=== PATIENT | female | born 1995 | race Caucasian/White ===

== ENCOUNTER 2024-07-08 10:57 | Outpatient (CLI) | payer BC, SELFPAY ==
--- OUTSIDE RECORDS SUMMARY | 2024-07-08 11:00 | XMS_ITS | Encounter Summary ---
Author Organization [facility] Address [address] [place] [address] Care Team Providers Care [place] Name Role Phone Unavailable Primary Care Provider Unavailabl e Encounter Details Date Type Department Care Team (Late st Contact Info) Description 04/05/2024 Clinical Communication Department of Obstetrics and Gynecology in [place], [place] [address] [id number] Sydni Dean M.D. [address] [place] [id number] Social History Tobacco Use Types Packs/Day Years Used Date Smoking Tobacco: Never Smokeless Tobacco: Never Alcohol Use Standard Drinks/Week Comments Not Currently 0 (1 standard drink = 0.6 oz pur e alcohol) [facility] Utilities Answer Date Recorded In the past 12 months has [facility], gas, oil, or water [employer] threatened to shut off services in your home? No 04/05/2024 Humiliation, Afraid, Rape, and Kick questionnair e Answer Date Recorded Within the last year, have y ou been afraid of your partner or ex-partner? No 11/30/2022 Within the last year, have y ou been humiliated or emotionally abused in other ways by your partner or ex-partner? No Within the last year, have y ou been kicked, hit, slapped, or otherwise physically hurt by your partner or ex-partner? No 11/30/2022 Within the last year, have y ou been raped or forced to have any kind of sexual activity by your partner or ex-partner? No 11/30/2022 Social Connection and Isolat ion Panel [NHANES] Answer Date Recorded In a typical week, how many times do you talk on the phone with family, friends, or neighbors? Three times a week 11/30/2022 How often do you get togethe r with friends or relatives? Twice a week 11/30/2022 How often do you attend chur ch or rastafari services? 1 to 4 times per year 11/30/2022 Do you belong to any clubs o r organizations such as religious groups, unions, fraternal or athletic groups, or school groups? No 11/30/2022 How often do you attend meet ings of the clubs or organizations you belong to? More than 4 times per year 11/30/2022 Are you , , di vorced, , never , or living with a partner? 11/30/2022 AUDIT-C Answer Date Recorded Q1: How often do you have a drink containing alc ohol? Never 11/30/2022 Average Number of Drinks Not on file 023 Frequency of Binge Drinking Not on file 10/2022 Overall Financial Resource Strain (CARDIA) Answe r Date Recorded How hard is it for you to pa y for the very basics like food, housing, medical care, and heating? Not hard at all 11/30/2022 PHQ-2 Answer Date Recorded PHQ-2 Score 0 11/30/2022 [facility] - Occupational Stress Questionnaire Answer Date Recorded Do you feel stress - tense, restless, nervous, or anxious, or unable to sleep at night because your mind is troubled all the time - these days? Not at all 11/30/2022 Exercise Vital Sign Answer Date Recorde d On average, how many days pe r week do you engage in moderate to strenuous exercise (like a brisk walk)? 5 days 04/05/2024 On average, how many minutes do you engage in exercise at this level? 60 min 04/05/2024 Hunger Vital Sign Answer Date Recorded Within the past 12 months, y ou worried that your food would run out before you got the money to buy more. Never true 04/05/20 24 Within the past 12 months, t he food you bought just didn't last and you didn't have money to get more. Never true 04/05/2024 PRAPARE - Transportation Answer Date Re corded In the past 12 months, has l ack of transportation kept you from medical appointments or from getting medications? No 01/2024 In the past 12 months, has l ack of transportation kept you from meetings, work, or from getting things needed for daily living? No 04/05/2024 Nutrition Answer Date Recorded On average, how many serving s of fruits and vegetables do you eat per day (serving size is equal to 1 cup or approximately the size of a tennis ball)? 0-2 04/05/2024 Dental Answer Date Recorded Dental: Regular Dentist No 12/01/19 Employment Answer Date Recorded Employment status Employed and actively working without restrictions 04/05/2024 Housing Stability Answer Date Recorded What is your living situation today? I have a [facility] place to live 04/05/2024 Education Answer Date Recorded What is the highest level of school you have completed or the highest degree you have received? 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 - 04/05/2024 4:35 PM CDT Called patient back to gather more information. Patient has not gotten her period as she is so she is unsure on how far along she is. States last test she took was in November and it was negative. She has some nausea but no other symptoms. Scheduled RN BRENDAN visit. documented in this encounter Plan of Treatment Not on file documented as of this encounter Visit Diagnoses Not on filedocumented in this encounter
--- OUTSIDE RECORDS SUMMARY | 2024-07-08 11:00 | XMS_ITS | Encounter Summary ---
Author Organization [facility] Address [address] [place] [address] Care Team Providers [employer] Name Role Phone Unavailable Primary Care Provider Unavailabl e Reason for Referral * Outpatient (Routine) - Closed Specialty Diagnoses / Procedures Referred By Thomas marquez Referred To Contact Obstetrics and Gynecology Diagnoses Examination Test With Positive Result (HCC) Hailey Monroe CNM, D.N.P. [address] [place] [address] Phone: tel: fax: [facility] Region Referral ID Status Reason Start Date Expiration Date Visits Re quested Visits Authorized [id number] Closed 04/07/2024 10/07/2025 1 1 Reason for Visit * Reason Comments Nurse Visit NOB RN Visit * Appointment Request (Routine) - Closed Specialty Diagnoses / Procedures Referred By Contac t Referred To Contact Obstetrics and Gynecology Referral ID Status Reason Start Date Expiration Date Visits Re quested Visits Authorized [id number] Closed 04/05/2024 04/05/2025 1 1 Encounter Details Date Type Department Care Team (Latest Contact Info) Description 04/07/2024 1:00 PM CDT Initial Department of Obstetrics and Gynecology in [place], [place] [address] [place] [phone] David Lock M.D. [address] [place] [phone] Thomasyolande ReneeRandolph PritchettNMarlon GA: 7w1d Discharge Disposition: Home or Self Care Social History Tobacco Use Types Packs/Day Years Used Date Smoking Tobacco: Never Smokeless Tobacco: Never Alcohol Use Standard Drinks/Week Comments Not Currently 0 (1 standard drink = 0.6 oz pur e alcohol) [facility] Utilities Answer Date Recorded In the past 12 months has e [employer], [employer], oil, or water [employer] threatened to shut off services in your [...] week 11/30/2022 How often do you attend [facility] or latter-day services? 1 to 4 times per year 11/30/2022 Do you belong to any clubs o r organizations such as hindu groups, unions, fraternal or athletic groups, or [...] PHQ-2 Answer Date Recorded PHQ-2 Score 0 04/07/2024 [facility] - Occupational Stress Questionnaire Answer Date Recorded [...] things needed for daily living? No 04/05/2024 Depression Answer Date Recor ded PHQ-9 Total Score (max 27) 1 04/07 Nutrition Answer Date Recorded On average, how many serving s of fruits and vegetables do you eat per day (serving size is equal to 1 cup or approximately the size of a tennis ball)? 0-2 04/05/2024 Dental Answer Date Recorded Dental: Regular Dentist No 12/01/19 23 Employment Answer Date Recorded Employment status Employed and actively working without restrictions 04/05/2024 Housing Stability Answer Date Recorded What is your living situation today? I have a the rehabilitation institutedy place to live 04/05/2024 Education Answer Date Recorded What is the highest level of school you have completed or the highest degree you have received? 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 - 04/07/2024 1:00 PM CDT SUBJECTIVE CHIEF COMPLAINT / REASON FOR VISIT Valentina Landa is a 28 y.o. . No LMP recorded (lmp unknown). Patient is . Her Estimated Date of Delivery: None noted. determined by US . Gestational age is Unknown. Relationship with FOB: spouse, living together. Patient plans to breastfeed. HISTORY OF PRESENT CONDITION OB History Para Term AB Living 2 1 1 1 SAB IAB Ectopic Molar Multiple Live Births 1 # Outcome Date GA Lbr Peterson/2nd Weight Sex Type Anes PTL Lv 2 Current 1 Term 07/01/23 37w5d 16:12 / 00:18 3 kg F Vag-Spont CAMILO Genetic Screen: reviewed [place] Score: Past Medical History: Diagnosis Date Anemia Varicella Past Surgical History: Procedure Laterality Date EXTRACTION TOOTH Family History Problem Relation Name Age of Onset No Known Problems Mother No Known Problems Father Rheumatic fever Brother Hypertension Maternal Grandfather Esophageal cancer Paternal Grandmother Cancer Paternal Grandmother Cirrhosis and chronic liver disease Paternal Grandmother Social History Socioeconomic History Marital status: Spouse name: Gerardo Number of children: 1 Highest education level: Doctorate Occupational History Occupation: Chiropractor Comment: Specializes in chiropractic Tobacco Use Smoking status: Never Smokeless tobacco: Never Vaping Use Vaping status: never used Substance and Sexual Activity Alcohol use: Not Currently Drug use: Never Sexual activity: Yes Partners: Male Social History Narrative Living with spouse and 1 child. No pets. Community Resource reviewed Social Determinants of Health Food Insecurity: No Food Insecurity (04/05/2024) Hunger Vital Sign Worried About Running Out of Food in the Last Year: Never true Ran Out of Food in the Last Year: Never true Transportation Needs: No Transportation Needs (04/05/2024) PRAPARE - Transportation Lack of Transportation (Medical): No Lack of Transportation (Non-Medical): No Physical Activity: Sufficiently Active (04/05/2024) Exercise Vital Sign Days of Exercise per Week: 5 days Minutes of Exercise per Session: 60 min Intimate Partner Violence: Not At Risk (11/30/2022) Humiliation, Afraid, Rape, and Kick questionnaire Fear of Current or Ex-Partner: No Emotionally Abused: No Physically Abused: No Sexually Abused: No Housing Stability: Low Risk (04/05/2024) Housing Stability Housing: Living Situation: I have a steady place to live No Known Allergies Medications the Patient Reported Taking B complex-vitamins (Balanced B-50) tablet (Taking) OBJECTIVE VITAL SIGNS ASSESSMENT / PLAN The following were reviewed with patient: 1st/2ndTrimester education provided today using the ACOG list of recommended antepartum education topics and in accordance with [facility] guidelines. Patient states understanding to all topics presented. All questions answered during appointment. Written information regarding topics presented provided for patient to take home. Please see education tab for further details about topics addressed. Anticipated course of care, Routine labs, optional labs, seat belt use, dental care, exercise, caffeine use, sexual activity, toxoplasmosis precautions(if indicated), avoidance of hot tubs/saunas, WIC, [place] policy, safe over the counter medications, care cost estimate/insurance, common symptoms, mercury and listeria precautions, and , topics of when to notify care team(fever, excessive nausea/vomiting, pain, bleeding, urinary symptoms, headaches). Encouraged good communication with care team re: emotional status. Lead screening complete and is negative. Encouraged tocall with questions or concerns. Renee Wadsworth R.N. documented in this encounter Plan of Treatment Scheduled Referrals Name Type Priority Associated Diagnoses Orde r Schedule Obstetrics and Gynecology - Obstetrics consult (clinic) Outpatient Referral Routine Examination Test With Positive Result (HCC) Expected: 04/07/2024, Expires: 07/08/2025 documented as of this encounter Results * Varicella-Zoster Antibody, IgG, Serum (04/22/2024 2:44 PM CDT) Varicella-Zoster Ab, IgG, S Positive 04/26/2024 1:58 PM CDT [facility] Comment: Results suggest response to immunization or prior exposure to the virus. ----REFERENCE VALUE---- Vaccinated: Positive (>=1.1 AI) Unvaccinated: Negative (<=0.8 AI) Varicella IgG Antibody Index 1.1 04/26/2024 1:58 PM CDT [place] Blood (Blood, Venous) 04/22/2024 2:44 PM CDT 04/23/2024 6:51 PM CDT Hailey Monroe CNM, D.N.P. LAB MICROBIOLOGY - BL OOD ORDERABLES Final Result Performing Organization Address [facility] de Phone Number [facility] [address] [place] [address], [facility] [place] [address] * Syphilis Total Antibody with Reflex, Serum (04/22/2024 2:44 PM CDT) Pathologist [facility] Syphilis Total Ab w/ Reflex Nonreactive Nonreactive 04/25/2024 9:17 AM CDT [facility] Comment: No serologic evidence of infection with T. pallidum (syphilis). ??Repeat testing may be considered in patients with suspected acute or primary syphilis in 2-4 weeks. For additional information on interpretation of the syphilis reverse algorithm and results, see: [email or web address] Blood (Blood, Venous) 04/22/2024 2:44 PM CDT 04/23/2024 6:53 PM CDT Hailey Monroe CNM, D.N.P. LAB BLOOD ADD-ON Hannah l Result Performing Organization Address City/[facility] Co de Phone Number [facility] [address] [place] [phone], [facility] in [address] [address] * Rubella Antibodies, IgG (04/22/2024 2:44 PM CDT) Rubella Ab, IgG, S Negative 04/26/2024 1:58 PM CDT [facility] Comment: ----REFERENCE VALUE---- Vaccinated: Positive (>=1.0 AI) Unvaccinated: Negative (<=0.7 AI) Rubella IgG Antibody Index <0.2 04/26/2024 1:58 PM CDT [facility] Blood (Blood, Venous) 04/22/2024 2:44 PM CDT 04/23/2024 6:51 PM CDT Hailey Monroe CNM, D.N.P. LAB MICROBIOLOGY - BL OOD ORDERABLES Final Result [facility] [address] [place] [address], [facility] in [address] [address] * HIV-1/-2 Ag and Ab Scrn, Plasma (04/22/2024 2:44 PM CDT) HIV Ag/Ab Scrn, P Negative Negative 04/25/2024 10:29 AM CDT [facility] Comment: Negative result does not rule out HIV infection. If exposure to HIV infection occurred <14 days ago, contact the laboratory to request addition of HIV-1/HIV-2 RNA detection , Plasma (HPP12). HIV-1 p24 Ag Scrn, P Negative Negative 04/25/2024 10:29 AM CDT [facility] Comment: Negative result does not rule out HIV infection. If exposure to HIV infection occurred <14 days ago, contact the laboratory to request addition of HIV-1/HIV-2 RNA detection , Plasma (HPP12). HIV-1 Ab Scrn, P Negative Negative 04/25/2024 10:29 AM CDT [facility] Comment: Negative result does not rule out HIV infection. If exposure to HIV infection occurred <14 days ago, contact the laboratory to request addition of HIV-1/HIV-2 RNA detection , Plasma (HPP12). HIV-2 Ab Scrn, P Negative Negative 04/25/2024 10:29 AM CDT [facility] Comment: Negative result does not rule out HIV infection. If exposure to HIV infection occurred <14 days ago, contact the laboratory to request addition of HIV-1/HIV-2 RNA detection , Plasma (HPP12). Blood (Blood, Venous) 04/22/2024 2:44 PM CDT 04/23/2024 6:53 PM CDT Hailey Monroe CNM, D.N.P. LAB MICROBIOLOGY - BL OOD ORDERABLES Final Result Performing Organization Address City/[facility]/ZIP Co de Phone Number [address] [address], [facility] in [address] [address] * Hepatitis C Virus Antibody Screen (04/22/2024 2:44 PM CDT) HCV Ab Scrn , S Negative Negative 04/23/2024 8:39 AM CDT [facility] Comment: Consumption of high-dose biotin supplement within 12 hours of blood collection for this test can cause false-negative results. Blood (Blood, Venous) 04/22/2024 2:44 PM CDT 04/23/2024 7:16 AM CDT Hailey Monroe CNM, D.N.P. LAB MICROBIOLOGY - BL OOD ORDERABLES Final Result [facility] [address] [place] [address] [facility] [address] [place] [address] * HBs Antigen , Serum (04/22/2024 2:44 PM CDT) HBs Antigen , S Non reactive Non reactive 04/22/2024 9:57 PM CDT [facility] Blood (Blood, Venous) 04/22/2024 2:44 PM CDT 04/22/2024 9:[address] CNMNMarlonP. LAB MICROBIOLOGY - BL OOD ORDERABLES Final Result [facility] [address] [place] [address], [facility] [address] [place] [address] * Hemoglobin Electrophoresis Evaluation (04/22/2024 2:44 PM CDT) Hb A 97.3 95.8 - 98.0 % 04/25/2024 2:48 PM CDT [facility]TL Hb F 0.0 0.0 - 0.9 % 04/25/2024 2:48 PM CDT DTL Hb A2 2.7 2.0 - 3.3 % 04/25/2024 2:48 PM CDT [facility] Comment: ----ADDITIONAL INFORMATION---- This test has been modified from the reflexologist's instructions. Its performance characteristics were determined by [facility] in a manner consistent with CLIA requirements. This test has not been cleared or approved by the U.S. Food and Drug Administration. HPLC Hb Variant, B See Interpretation 04/25/2024 2:48 PM CDT [facility] Comment: ----ADDITIONAL INFORMATION---- This test has been modified from the reflexologist's instructions. Its performance characteristics were determined by [facility] in a manner consistent with CLIA requirements. This test has not been cleared or approved by the U.S. Food and Drug Administration. Hb Electrophoresis Interpretation No electrophoretic evidence of abnormal hemoglobin or beta thalassemia. See comment. Comment: These results do not exclude alpha thalassemia. The vast majority of hemoglobin variants and beta complex thalassemias are excluded, including the common variants Hbs S, C, D, and E, although some rare clinically significant hemoglobin disorders are electrophoretically silent. In particular, some variants such as Hb Constant Spring, or other variants, may not be detected. If otherwise unexplained lifelong/familial symptoms such as hemolysis (i.e. Sha body hemolytic anemia), microcytosis, erythrocytosis, cyanosis, or hypoxia are present and additional testing is desired, please call the Metabolic Hematology Laboratory ( ). If alpha thalassemia is a consideration, alpha globin gene deletion/duplication analysis is available (ATHAL/Alpha-Globin Gene Analysis). If genotyping to assess for Hb Constant Spring is desired, please order WASEQ/Alpha Globin Gene Sequencing, B. Additional sample required. Methodologies utilized in this interpretation include: capillary electrophoresis, HPLC. 04/25/2024 2:48 PM CDT [facility] Blood (Blood, Venous) 04/22/2024 2:44 PM CDT 04/23/2024 8:29 AM CDT Hailey Monroe CNM, D.N.P. LAB BLOOD ADD-ON Hannah l Result [facility] [address] [place] [address], [facility] DTL [address] [facility] [address] [place] [address] * (ABNORMAL) CBC with Differential, Blood (04/22/2024 2:44 PM CDT) Hemoglobin 12.8 11.6 - 15.0 g/dL 04/22/2024 2:55 PM CDT [facility] Hematocrit 37.8 35.5 - 44.9 % 04/22/2024 2:55 PM CDT [facility] Erythrocytes 4.26 3.92 - 5.13 x10(12)/L 04/22/2024 2:55 PM CDT [facility] MCV 88.7 78.2 - 97.9 fL 04/22/2024 2:55 PM CDT [facility] RBC Distrib Width 12.5 12.2 - 16.1 % 04/22/2024 2:55 PM CDT [facility] Platelet Count 254 157 - 371 x10(9)/L 04/22/2024 2:55 PM CDT [facility] Leukocytes 12.6(H) 3.4 - 9.6 x10(9)/L 04/22/2024 2:55 PM CDT [facility] Neutrophils 8.86(H) 1.56 - 6.45 x10(9)/L 04/22/2024 2:55 PM CDT [facility] Lymphocytes 2.86 0.95 - 3.07 x10(9)/L 04/22/2024 2:55 PM CDT [facility] Monocytes 0.75 0.26 - 0.81 x10(9)/L 04/22/2024 2:55 PM CDT [facility] Eosinophils 0.11 0.03 - 0.48 x10(9)/L 04/22/2024 2:55 PM CDT [facility] Basophils 0.04 0.01 - 0.08 x10(9)/L 04/22/2024 2:55 PM CDT [facility] Blood (Blood, Venous) 04/22/2024 2:44 PM CDT 04/22/2024 2:46 PM CDT us Hailey Monroe CNM, D.N.P. LAB BLOOD ADD-ON Hannah l Result [facility] [address] [place] [id number], [place] [facility] in [place] [address] [address] * Antibody Screen, RBC (with reflex Antibody ID) (04/22/2024 2:44 PM CDT) Antibody Screen NEG 10:09 PM CDT [facility] Blood (Blood, Venous) 04/22/2024 2:44 PM CDT 04/22/2024 10:09 PM CDT us Hailey Monroe CNM, D.N.P. LAB BLOOD BANK TEST O RDERABLES Final Result [facility] [address] [place] [address], [place] [facility] [address] [place] [address] * Chlamydia / Gonorrhoeae Amplified RNA (04/22/2024 2:42 PM CDT) Source Swab, Vagina 04/22/2024 11:04 PM CDT [facility] Chlamydia trachomatis amplified RNA Negative Negative 04/22/2024 11:04 PM CDT [facility] Source Swab, Vagina 04/22/2024 11:04 PM CDT [facility] Neisseria gonorrhoeae amplified RNA Negative Negative 04/22/2024 11:04 PM CDT [facility] Swab (Vagina) 04/22/2024 2:4 2 PM CDT 04/22/2024 7:11 PM CDT us Hailey Monroe CNM, D.N.P. LAB MICROBIOLOGY - NERAL ORDERABLES Final Result [facility] [address] [place] [address], [facility] [address] [address] * (ABNORMAL) Urinalysis with Microscopic if Indicated (04/22/2024 2:40 PM CDT) Source Urine, Urine, Midstream 04/22/2024 3:11 PM CDT [facility] Clarity Cloudy(A) Clear 04/22/2024 3:11 PM CDT [facility] Color Yellow 04/22/2024 3:11 PM CDT [facility] Comment: ----REFERENCE VALUE---- Colorless Yellow Irene Blood Negative Negative 04/22/2024 3:11 PM CDT [facility] Nitrite Negative Negative 04/22/2024 3:11 PM CDT [facility] Leukocyte Esterase Small(A) Negative 04/22/2024 3:11 PM CDT [facility] Protein Negative mg/dL 04/22/2024 3:11 PM CDT [facility] Comment: ----REFERENCE VALUE---- Negative Trace Glucose Negative Negative mg/dL 04/22/2024 3:11 PM CDT [facility] Ketone Negative Negative mg/dL 04/22/2024 3:11 PM CDT [facility] Bilirubin Negative Negative 04/22/2024 3:11 PM CDT [facility] pH 6.0 5.0 - 8.0 04/22/2024 3:11 PM CDT [facility] Specific [place] 1.018 1.001 - 1.035 04/22/2024 3:11 PM CDT [facility] Urobilinogen 0.2 0.2 - 1.0 mg/dL 04/22/2024 3:11 PM CDT [facility] Urine (Urine, Midstream) 04/22/2024 2:40 PM CDT 04/22/2024 3:01 PM CDT Hailey Monroe CNM, D.N.P. LAB URINE ORDERABLES Final Result Performing Organization Address City/[facility] Co de Phone Number [facility] [address] [address], [facility] in [place] [address] [place] [phone] * Bacterial Culture, Aerobic + Susceptibility, Urine (04/22/2024 2:40 PM CDT) Urine Culture Urogenital microbiota, susceptibilities not performed per laboratory criteria. 04/23/2024 12:52 PM CDT [facility] Urine (Urine, Midstream) 04/22/2024 2:40 PM CDT 04/22/2024 7:12 PM CDT Comment:Specimen Source Site : Urine Hailey Monroe CNM, D.N.P. LAB MICROBIOLOGY - GE NERAL ORDERABLES Final Result Performing Organization Address City/[facility] Co de Phone Number [facility] [address] [place] [phone], [facility] in [address] [address] * US OB First Trimester (04/22/2024 1:27 PM CDT) Anatomical Region Laterality Modality Body, Ultrasound OB RST LOS, Ultrasound ARZ LOS N/A Ultrasound Impressions 04/22/2024 1:28 PM CDT Single living intra-uterine with dating per full report. Narrative 04/22/2024 1:28 PM CDT EXAM: US OB FIRST TRIMESTER COMPARISON: Correlation with prior ultrasound 01/16/2023. No more recent/relevant imaging available for comparison. TECHNIQUE: Transabdominal Only FINDINGS: Number of Gestations: Single Gestational age and JIMMY by LMP or OB/EHR assignment: , JIMMY: INTRAUTERINE Pole: Normal, [place]-Rump Length: 25.2 mm Gestational Sac: Normal Yolk Sac: Normal Placenta Location: Posterior. Age and JIMMY by current ultrasound measurements: 9 w 2 d, JIMMY: 11/23/2024. heart rate: 176 Uterus: No unexpected findings. Right Ovary/Adnexa: Normal. Left Ovary/Adnexa: Corpus luteum. Cervical Length: Subjectively normal by Transabd evaluation only Intraperitoneal Fluid: None. Procedure Note Jacob Coffman M.D. - 04/22/2024 EXAM: US OB FIRST TRIMESTER COMPARISON: Correlation with prior ultrasound 01/16/2023. No morerecent/relevant imaging available for comparison. TECHNIQUE: Transabdominal Only FINDINGS: Number of Gestations: Single Gestational age and JIMMY by LMP or OB/EHR assignment: , JIMMY: INTRAUTERINE Pole: Normal, [place]-Rump Length: 25.2 mm Gestational Sac: Normal Yolk Sac: Normal Placenta Location: Posterior. Age and JIMMY by current ultrasound measurements: 9 w 2 d, JIMMY: 11/23/2024. heart rate: 176 Uterus: No unexpected findings. Right Ovary/Adnexa: Normal. Left Ovary/Adnexa: Corpus luteum. Cervical Length: Subjectively normal by Transabd evaluation only Intraperitoneal Fluid: None. IMPRESSION: Single living intra-uterine with dating per full report. us Hailey Monroe CNM, D.N.P. IMG OB US PROCEDURES Final Result documented in this encounter Visit Diagnoses Diagnosis Examination Test With Positive Result (HCC)- Primary Examination Test With Positive Result (HCC) documented in this encounter Additional Health Concerns Assessment Noted Time PHQ-9 Depression Total Score: 1 04/07/20 24 1:08 PM CDT documented as of this encounter
--- OUTSIDE RECORDS SUMMARY | 2024-07-08 11:00 | XMS_ITS | Encounter Summary ---
Author Organization [facility] Address [address] [place] [address] Care Team Providers Care Sculpture Conservator Name Role Phone Unavailable Primary Care Provider Unavailabl e Encounter Details Date Type Department Care Team (Latest Contact Info) Description 04/22/2024 2:22 PM CDT - 04/22/2024 11:59 PM CDT Hospital Encounter Department of Laboratory Medicine in [place], [place] [address] [place] [address] Hailey Monroe CNM, D.N.P. [address] [place] [address] Examination Test With Positive Result (HCC) Discharge Disposition: Home or Self Care Social History Tobacco Use Types Packs/Day Years Used Date Smoking Tobacco: Never Smokeless Tobacco: Never Alcohol Use Standard Drinks/Week Comments Not Currently 0 (1 standard drink = 0.6 oz pur e alcohol) [facility] Utilities Answer Date Recorded In the past 12 months has e [employer], gas, oil, or water [employer] threatened to shut off services in your [...] often do you attend chur ch or sabianist services? 1 to 4 times per year 11/30/2022 Do you belong to any clubs o r organizations such as temple groups, unions, fraternal or athletic groups, or [...] Average Number of Drinks Not on file Frequency of Binge Drinking Not on file 10/2022 Overall Financial Resource Strain (CARDIA) Answe r Date Recorded How hard is it for you to pa y for the very basics like food, housing, medical care, and heating? Not hard at all 11/30/2022 PHQ-2 Answer Date Recorded PHQ-2 Score 0 04/07/2024 [facility] Occupat ional Health - Occupational Stress [...] your living situation today? [facility] 04/05/2024 Education Answer Date Recorded What is the highest level of school you have completed or the highest degree you have received? 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 documented as of this encounter Plan of Treatment Not on file documented as of this encounter Procedures Procedure Name Priority Date/Time Associated Diagnosis Comments HCV AB SCRN , S Routine 04/22/20 24 2:44 PM CDT Examination Test With Positive Result (HCC) HIV-1/-2 AG AND AB SCRN, PLASMA Routine 04/22/2024 2:44 PM CDT Examination Test With Positive Result (HCC) SYPHILIS TOTAL AB W/ REFLEX S Routine 04/22/2024 2:44 PM CDT Examination Test With Positive Result (HCC) HBS ANTIGEN , S Routine 04/22/20 2:44 PM CDT Examination Test With Positive Result (HCC) HEMOGLOBIN ELECTROPHORESIS CASCADE, B Routine 04/22/2024 2:44 PM CDT Examination Test With Positive Result (HCC) RUBELLA ANTIBODIES, IGG Routine 04/22/20 2:44 PM CDT Examination Test With Positive Result (HCC) CBC WITH DIFFERENTIAL, B Routine 04/22/2024 2:44 PM CDT Examination Test With Positive Result (HCC) ANTIBODY SCREEN, B Routine 04/22/2024 2: 44 PM CDT Examination Test With Positive Result (HCC) VARICELLA-ZOSTER AB, IGG, S Routine 04/22/2024 2:44 PM CDT Examination Test With Positive Result (HCC) documented in this encounter Results * Varicella-Zoster Antibody, IgG, Serum (04/22/2024 2:44 PM CDT) Varicella-Zoster Ab, IgG, S Positive 04/26/2024 1:58 PM CDT [facility] Comment: Results suggest response to immunization or prior exposure to the virus. ----REFERENCE VALUE---- Vaccinated: Positive (>=1.1 AI) Unvaccinated: Negative (<=0.8 AI) Varicella IgG Antibody Index 1.1 04/26/2024 1:58 PM CDT [facility] Blood (Blood, Venous) 04/22/2024 2:44 PM CDT 04/23/2024 6:51 PM CDT Hailey Monroe CNM, Nancy.N.P. LAB MICROBIOLOGY - BL OOD ORDERABLES Final Result Performing Organization Address [facility] Co de Phone Number [facility] [address] [place] [phone], [facility] in [address] [address] * Syphilis Total Antibody with Reflex, Serum (04/22/2024 2:44 PM CDT) Syphilis Total Ab w/ Reflex Nonreactive Nonreactive 04/25/2024 9:17 AM CDT [facility] Comment: No serologic evidence of infection with T. pallidum (syphilis). ??Repeat testing may be considered in patients with suspected acute or primary syphilis in 2-4 weeks. For additional information on interpretation of the syphilis reverse algorithm and results, see: [email or web address] Blood (Blood, Venous) 04/22/2024 2:44 PM CDT 04/23/2024 6:53 PM CDT Hailey Monroe CNM, D.N.P. LAB BLOOD ADD-ON Hannah l Result Performing Organization Address [facility] Co de Phone Number [facility] [address] [place] [phone], [facility] in [address] [address] * Rubella Antibodies, IgG (04/22/2024 2:44 PM CDT) Rubella Ab, IgG, S Negative 04/26/2024 1:58 PM CDT [facility] Comment: ----REFERENCE VALUE---- Vaccinated: Positive (>=1.0 AI) Unvaccinated: Negative (<=0.7 AI) Rubella IgG Antibody Index <0.2 04/26/2024 1:58 PM CDT [facility] Blood (Blood, Venous) 04/22/2024 2:44 PM CDT 04/23/2024 6:51 PM CDT us Hailey Monroe CNM, D.N.P. LAB MICROBIOLOGY - BL OOD ORDERABLES Final Result [facility] [address] [place] [address], [facility] in [place] [address] * HIV-1/-2 Ag and Ab Scrn, Plasma [...] 2:44 PM CDT 04/23/2024 6:53 PM CDT us Hailey Monroe CNM, D.N.P. LAB MICROBIOLOGY - BL OOD ORDERABLES Final Result [facility] [address] [place] [address], [place] [facility] [place] [address] [place] [address] * Hepatitis C Virus Antibody Screen (04/22/2024 2:44 PM CDT) Pathologist [facility] [place] HCV Ab Scrn , S Negative Negative 04/23/2024 8:39 AM CDT [facility] Comment: Consumption of high-dose biotin supplement within 12 hours of blood collection for this test can cause false-negative results. Blood (Blood, Venous) 04/22/2024 2:44 PM CDT 04/23/2024 7:16 AM CDT Hailey Monroe CNM, Nancy.N.P. LAB MICROBIOLOGY - BL OOD ORDERABLES Final Result Performing Organization Address City/[facility]/ZIP Co de Phone Number [facility] [address] [place] [address] [facility] [address] [place] [address] * HBs Antigen , Serum (04/22/2024 2:44 PM CDT) Pathologist [facility] [place] HBs Antigen , S Non reactive Non reactive 04/22/2024 9:57 PM CDT [facility] Blood (Blood, Venous) 04/22/2024 2:44 PM CDT 04/22/2024 9:21 PM CDT us Hailey Monroe CNM, D.N.P. LAB MICROBIOLOGY - BL OOD ORDERABLES Final Result [facility] [address] [place] [address], [place] [facility] [address] [place] [address] * Hemoglobin Electrophoresis Evaluation (04/22/2024 2:44 PM CDT) Pathologist [facility] [place] Hb A 97.3 95.8 - 98.0 % 04/25/2024 2:48 PM CDT [facility] Hb F 0.0 0.0 - 0.9 % 04/25/2024 2:48 PM CDT [facility] Hb A2 2.7 2.0 - 3.3 % 04/25/2024 2:48 PM CDT [facility] Comment: ----ADDITIONAL INFORMATION---- This test has been modified from the front desk's instructions. Its performance characteristics were determined by [facility] in a manner consistent with CLIA requirements. This test has not been cleared or approved by the U.S. Food and Drug Administration. HPLC Hb Variant, B See Interpretation 04/25/2024 2:48 PM CDT [facility] Comment: ----ADDITIONAL INFORMATION---- This test has been modified from the front desk's instructions. Its performance characteristics were determined by [facility] in a manner consistent with CLIA [...] D.N.P. LAB BLOOD ADD-ON Hannah l Result [facility] [address] [place] [address], [facility] DTL [address] [facility] [address] [place] [address] * (ABNORMAL) CBC with Differential, Blood (04/22/2024 [...] ADD-ON Hannah l Result Performing Organization Address City/[facility]/ZIP Co de Phone Number [facility] [address] [place] [address], [place] [facility] [place] [address] [place] [address] * Antibody Screen, RBC (with reflex Antibody ID) (04/22/2024 2:44 PM CDT) Antibody Screen NEG 10:09 PM CDT [facility] Blood (Blood, Venous) 04/22/2024 2:44 PM CDT 04/22/2024 10:09 PM CDT us Hailey Monroe CNM, D.N.P. LAB BLOOD BANK TEST O RDERABLES Final Result Performing Organization Address [facility] Co de Phone Number [facility] [address] [place] [address], [facility] [address] [place] [address] documented in this encounter Visit Diagnoses Diagnosis Examination Test With Positive Result (HCC) documented in this encounter Additional Health Concerns Assessment Noted Time PHQ-9 Depression Total Score: 1 04/07/20 24 1:08 PM CDT documented as of this encounter
--- OUTSIDE RECORDS SUMMARY | 2024-07-08 11:00 | XMS_ITS | Referral Summary ---
Author Organization [facility] Address [address] [place] [address] Care Team Providers Care Director Auto Name Role Phone Unavailable Primary Care Provider Unavailabl e Source Comments Patient records contain information from all sites at [facility]. For routine questions regarding patient records, call [phone] during business hours, M-F 8:00 AM - 5:00 PM Central Time. Record requests for emergency care only can be directed to [phone] at any time.[facility] Encounters Date Type Department Care Team Description 04/22/2024 2:22 PM CDT - 04/22/2024 11:59 PM CDT Hospital Encounter Department of Laboratory Medicine in [place], [place] [address] [place] [phone] Hailey Monroe CNM, D.N.P. Examination Test With Positive Result (HCC) Discharge Disposition: Home or Self Care 04/22/2024 2:22 PM CDT - 04/22/2024 11:59 PM CDT Hospital Encounter Department of Laboratory Medicine in [place], [place] [address] [place] [phone] Hailey Monroe CNM, D.N.P. Examination Test With Positive Result (HCC) Discharge Disposition: Home or Self Care 04/22/2024 1:30 PM CDT Silent Schedule Department of Obstetrics and Gynecology in [place], [place] [address] [place] [phone] Hailey Monroe CNM, D.N.P. Examination Test With Positive Result ([facility]) 04/22/2024 2:00 PM CDT Initial Department of Obstetrics and Gynecology in [place], [place] [address] [phone] Hailey Monroe CNM, Nancy.N.P. GA: 9w2d Discharge Disposition: Home or Self Care 04/07/2024 1:00 PM CDT Initial Department of Obstetrics and Gynecology in [place], [place] [address] [place] [phone] David Lock M.D. Dettmann, Heather B, R.N. GA: 7w1d Discharge Disposition: Home or Self Care from Last 3 Months Allergies Active Allergy Reactions Criticality Noted Date Comments Nickel Rash Low 07/01/2023 Medications * This document contains information received from the source organization and may not represent a complete record from that organization. B complex-vitamins (Balanced B-50) tablet Take 1 tablet by mouth daily. Active Active Problems Patient Care Coordination No te Formatting of this note migh t be different from the original. 11/13: Early Education Complete Problem Noted Date Diagnosed Date Encounter For Supervision Of Normal Unspecified Trimester 04/22/2024 Overview (04/27/2024): x 1 Datinwk US FOB: Gerardo () Blood type: O neg (antibodies neg) Carrier/aneuploidy screening: Considering Rubella non-immune/Varicella immune Covid Vaccine: In season Influenza vaccine: In season Pap Due: 12/2025 LDASA: N/A anatomy scan: OGTT: Hb at 28 weeks: Tdap: Rhogam: GBS: PPBC: Presentation at 36 wks: Feeding plan: Breast pump: Colostrum collection: Delivery Plan: Next visit: Issues: Term x 1: 3 kg female at 37w5d in 2022. 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 O negative blood type anatomy scan: .ordered 01/22/2023 OGTT: ___ Hb at 28 weeks:___ Tdap:___ Rhogam?: is reportedly negative; patient may decline GBS: ___ PPBC:___ Problems: 1. Hyperemesis. Improving at NOB at 14 weeks. 10 lb wt loss from prepreg 2. O neg blood type 3. Rubella NI 4. Cervical polyp- anterior lip, noted at NOB vi Hyperemesis Gravidarum Mild 01/22/2023 04/22/2024 Social History Tobacco Use Types Packs/Day Years Used Date Smoking Tobacco: Never Smokeless Tobacco: Never Tobacco Cessation:Counseling Given: Not Answered Alcohol Use Standard Drinks/Week Comments Not Currently 0 (1 standard drink = 0.6 oz pur e alcohol) [facility] Utilities Answer Date Recorded In the past [address] [facility] [employer], oil, or water [employer] threatened to shut off services in your [...] often do you attend chur ch or hindu services? 1 to 4 times per year 11/30/2022 Do you belong to any clubs o r organizations such as orthodoxy groups, unions, fraternal or athletic groups, or [...] Answer Date Recorded PHQ-2 Score 0 04/07/2024 [facility] - Occupational Stress [...] medical appointments or from getting medications? No 0801/2024 In the past 12 months, has l [...] your living situation today? I have a [facility] place to live 04/05/2024 Education Answer Date Recorded What is the highest level of school you have completed or the highest degree you have received? 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 on file Not on file Last Filed Vital Signs Vital Sign Reading Time Taken Comments Blood Pressure 104/69 04/22/2024 1:47 PM CDT Pulse 79 04/22/2024 1:47 PM CDT Temperature - - Respiratory Rate 20 02/23/2015 3:34 PM CDT Oxygen Saturation - - Inhaled Oxygen Concentration - - Weight 65.7 kg (144 lb 13.5 oz) 04/22/2024 1:47 PM CDT Height 166.2 cm (5' 5.43) 04/22/2024 1 :47 PM CDT with shoes on Body Mass Index 23.79 04/22/2024 1:47 PM CDT Plan of Treatment Not on file Procedures Procedure Name Priority Date/Time Associated Diagnosis Comments HEMOGLOBIN ELECTROPHORESIS CASCADE, B Routine 04/22/2024 2:44 [...] Positive Result (HCC) RUBELLA ANTIBODIES, IGG Routine 04/22/2024 2:44 PM CDT Examination Test With Positive Result (HCC) HIV-1/-2 AG AND AB SCRN, PLASMA Routine 04/22/2024 2:44 PM CDT Examination Test With Positive Result (HCC) HCV AB SCRN , S Routine 04/22/2024 2:44 PM CDT Examination Test With Positive Result (HCC) HBS ANTIGEN , S Routine 04/22/2024 2:44 PM CDT Examination Test With Positive Result (HCC) CHLAMYDIA/GONORRHOEAE AMPLIFIED RNA Routine 04/22/2024 2:42 PM CDT Examination Test With Positive Result (HCC) AL URINALYSIS AUTO WO MICRO Routine 04/22/2024 2:40 PM CDT URINALYSIS WITH MICROSCOPIC IF INDICATED, U Routine 04/22/2024 2:40 PM CDT Examination Test With Positive Result (HCC) BACTERIAL CULTURE, AEROBIC + SUSC, URINE Routine 04/22/2024 2:40 PM CDT Examination Test With Positive Result (HCC) US OB FIRST TRIMESTER RAD - Semiurgent (Fast; most ED patients; some inpatients) 04/22/2024 1:27 PM CDT Examination Test With Positive Result (HCC) THINPREP SCREEN HPV REFLEX Routine 01/22/2023 11:26 AM CDT Encounter For Screening For Malignant Neoplasm Of Cervix from Last 3 Months or Most Recently Relevant to Health Maintenance Results * Hepatitis C Virus Antibody Screen (04/22/2024 2:44 PM CDT) HCV Ab Scrn , S Negative Negative 04/23/2024 8:39 AM CDT [facility] Comment: Consumption of high-dose biotin supplement within 12 hours of blood collection for this test can cause false-negative results. Blood (Blood, Venous) 04/22/2024 2:44 PM CDT 04/23/2024 7:16 AM CDT Hailey Monroe CNM, Nancy.N.P. LAB MICROBIOLOGY - BL OOD ORDERABLES Final Result [facility] [address] [place] [address] [facility] [address] [place] [address] * HIV-1/-2 Ag and Ab Scrn, Plasma (04/22/2024 2:44 PM CDT) HIV Ag/Ab Scrn, P Negative Negative 04/25/2024 10:29 AM CDT [facility] Comment: Negative result does not rule out [...] MICROBIOLOGY - BL OOD ORDERABLES Final Result [facility] [address] [place] [address], [facility] in [place] [id number] * Syphilis Total Antibody with Reflex, Serum (04/22/2024 2:44 PM CDT) Syphilis Total Ab w/ Reflex Nonreactive Nonreactive 04/25/2024 9:17 AM CDT [facility] Comment: No serologic evidence of infection with T. pallidum (syphilis). ??Repeat testing may be considered in patients with suspected acute or primary syphilis in 2-4 weeks. For additional information on interpretation of the syphilis reverse algorithm and results, see: [email or web address] Blood (Blood, Venous) 04/22/2024 2:44 PM CDT 04/23/2024 6:53 PM CDT us Hailey Monroe CNM, D.N.P. LAB BLOOD ADD-ON Hannah l Result Performing Organization Address City/[facility]/ZIP Co de Phone Number [facility] [address] [place] [address], [facility] in [address] [address] * HBs Antigen , Serum (04/22/2024 2:44 PM CDT) HBs Antigen , S Non reactive Non reactive 04/22/2024 9:57 PM CDT [facility] Blood (Blood, Venous) 04/22/2024 2:44 PM CDT 04/22/2024 9:21 PM CDT us Hailey Monroe CNM, D.N.P. LAB MICROBIOLOGY - BL OOD ORDERABLES Final Result Performing Organization Address City/[facility] Co de Phone Number [facility] [address] [place] [address], [facility] [address] [place] [address] * Hemoglobin Electrophoresis Evaluation (04/22/2024 2:44 PM CDT) Hb A 97.3 95.8 - 98.0 % 04/25/2024 2:48 PM CDT DTL Hb F 0.0 0.0 - 0.9 % 04/25/2024 2:48 PM CDT DTL Hb A2 2.7 2.0 - 3.3 % 04/25/2024 2:48 PM CDT [facility] Comment: ----ADDITIONAL INFORMATION---- This test has been modified from the plant production worker's instructions. Its performance characteristics were determined by [facility] in a manner consistent with CLIA requirements. This test has not been cleared or approved by the U.S. Food and Drug Administration. HPLC Hb Variant, B See Interpretation 04/25/2024 2:48 PM CDT [facility] Comment: ----ADDITIONAL INFORMATION---- This test has been modified from the plant production worker's instructions. Its performance characteristics were determined by [facility] in a manner consistent with CLIA [...] D.N.P. LAB BLOOD ADD-ON Hannah l Result [facility] [address] [place] [address], [facility] DT [address] [place] [address] * Rubella Antibodies, IgG (04/22/2024 2:44 PM CDT) Pathologist [facility] Rubella Ab, IgG, S Negative 04/26/2024 1:58 PM CDT [facility] Comment: ----REFERENCE VALUE---- Vaccinated: Positive (>=1.0 AI) Unvaccinated: Negative (<=0.7 AI) Rubella IgG Antibody Index <0.2 04/26/2024 1:58 PM CDT [facility] Blood (Blood, Venous) 04/22/2024 2:44 PM CDT 04/23/2024 6:51 PM CDT Hailey Monroe CNM, Nancy.N.P. LAB MICROBIOLOGY - BL OOD ORDERABLES Final Result [facility] [address] [place] [address], [facility] in [address] [address] * (ABNORMAL) CBC with Differential, Blood (04/22/2024 [...] ADD-ON Hannah l Result Performing Organization Address City/[facility]/ZIP Co de Phone Number [facility] [address] [place] [address], [facility] in [place] [address], [place] [address] * Antibody Screen, RBC (with reflex Antibody ID) (04/22/2024 2:44 PM CDT) Antibody Screen NEG 10:09 PM CDT [facility] Blood (Blood, Venous) 04/22/2024 2:44 PM CDT 04/22/2024 10:09 PM CDT us Hailey Monroe CNM, D.N.P. LAB BLOOD BANK TEST O RDERABLES Final Result Performing Organization Address [facility] de Phone Number [facility] [address] [place] [address], [facility] - [facility] [address] [place] [address] * Varicella-Zoster Antibody, IgG, Serum (04/22/2024 2:44 [...] OOD ORDERABLES Final Result Performing Organization Address City/[facility] Co de Phone Number [facility] [address] [place] [address], [facility] in [place] [address] [place] [address] * Chlamydia / Gonorrhoeae Amplified RNA (04/22/2024 2:42 PM CDT) Source Swab, Vagina 04/22/2024 11:04 PM CDT [facility] Chlamydia trachomatis amplified RNA Negative Negative 04/22/2024 11:04 PM CDT [facility] Source Swab, Vagina 04/22/2024 11:04 PM CDT [facility] Neisseria gonorrhoeae amplified RNA Negative Negative 04/22/2024 11:04 PM CDT [facility] Swab (Vagina) 04/22/2024 2:4 2 PM CDT 04/22/2024 7:11 PM CDT Hailey Monroe CNM, Nancy.N.P. LAB MICROBIOLOGY - GE NERAL ORDERABLES Final Result Performing Organization Address City/[facility] Co de Phone Number [facility] [address] [place] [address], [facility] [address] [place] [address] * (ABNORMAL) Urinalysis with Microscopic if Indicated [...] 8.0 04/22/2024 3:11 PM CDT [facility] Specific [place] 1.018 1.001 - 1.035 04/22/2024 3:11 PM CDT [facility] Urobilinogen 0.2 0.2 - 1.0 mg/dL 04/22/2024 3:11 PM CDT [facility] Urine (Urine, Midstream) 04/22/2024 2:40 PM CDT 04/22/2024 3:01 PM CDT us Hailey Monroe CNM, D.N.P. LAB URINE ORDERABLES Final Result [facility] [address] [place] [address], [facility] in [place] [address] [place] [address] * (ABNORMAL) Microscopic Automated (04/22/2024 2:40 PM CDT) White Blood Cells 41-50(A) /hpf 04/22/2024 3:52 PM CDT [facility] Comment: ----REFERENCE VALUE---- Males: 0-3 Females: 0-10 Unknown: 0-10 Red Blood Cells Occ-2 0 - 2 /hpf 04/22/2024 3:52 PM CDT [facility] Hyaline Casts 1-3 /lpf 04/22/2024 3:52 PM CDT [facility] Squamous Cells 4-10 /hpf 04/22/2024 3:52 PM CDT [facility] Bacteria Present(A) None Seen 04/22/2024 3:52 PM CDT [facility] Urine 04/22/2024 2:40 PM CDT 04/22/2024 3:01 PM CDT Hailey Monroe CNM, Nancy.N.P. LAB URINE ORDERABLES Final Result Performing Organization Address City/[facility] Co de Phone Number [facility] [address] [place] [address], [facility] in [place] [address] [place] [address] * Bacterial Culture, Aerobic + Susceptibility, Urine (04/22/2024 2:40 PM CDT) Urine Culture Urogenital microbiota, susceptibilities not performed per laboratory criteria. 04/23/2024 12:52 PM CDT [facility] Urine (Urine, Midstream) 04/22/2024 2:40 PM CDT 04/22/2024 7:12 PM CDT Comment:Specimen Source Site : Urine Hailey Monroe CNM, D.N.P. LAB MICROBIOLOGY - GE NERAL ORDERABLES Final Result Performing Organization Address City/[facility] Co de Phone Number [facility] [address] [place] [address], [facility] in [place] [address] [place] [address] * US OB First Trimester (04/22/2024 1:27 [...] OB/EHR assignment: , JIMMY: INTRAUTERINE Pole: Normal, [place]-Rump Length: 25.2 mm Gestational Sac: Normal [place] [...] OB/EHR assignment: , JIMMY: INTRAUTERINE Pole: Normal, [place]-Rump Length: 25.2 mm Gestational Sac: Normal [place] [...] D.N.P. IMG OB US PROCEDURES Final Result * ThinPrep Screen HPV Reflex (01/22/2023 11:26 AM CDT) 02/03/2023 3:15 PM CDT [facility] Report electronically signed by ROYCE Cedeno (ASCP) I verify that I have examined all relevant slides/materials for the specimen(s) and rendered or confirmed the diagnosis. 02/03/2023 3:15 PM CDT [facility] Gross Description Received specimen in a ThinPrep vial. 02/03/2023 3:15 PM CDT [facility] Pap Test Source Cervical/Endocervi dipesh 02/03/2023 3:15 PM CDT [facility] Clinical History pap 02/04/20 3:15 PM CDT [facility] Menstrual Status(LMP, PM, ) 02/03/2023 3:15 PM CDT [facility] Hormone Therapy/Contracep tives None/Not known 02/03/2023 3:15 PM CDT [facility] Interpretation Cervical/Endocervi dipesh ??(ThinPrep): Satisfactory for Evaluation Negative for Intraepithelial Lesion or Malignancy 02/03/2023 3:15 PM CDT [facility] Thin Prep Vial (Cervix/Endocerv ix) 01/22/2023 11:26 AM CDT 01/23/2023 6:45 AM CDT us Sydni Daen M.D. LAB PAP PATHDX ORDERABLES Fi nal Result [facility] [address] [place] [address], [place] [facility] [address] [facility] [address] [place] [address] from Last 3 Months or Most Recently Relevant to Health Maintenance Insurance [facility]
--- OUTSIDE RECORDS SUMMARY | 2024-07-08 11:00 | XMS_ITS | Clinical Summary ---
Author Organization [facility] Address [address] [place] [address] Care Team Providers Care Forestry Conservation Worker Name Role Phone Unavailable Primary Care Provider Unavailabl e Source Comments Patient records contain information from all sites at [facility]. For routine questions regarding patient records, call [phone] during business hours, M-F 8:00 AM - 5:00 PM Central Time. Record requests for emergency care only can be directed to [phone] at any time.[facility] Allergies Active Allergy Reactions Criticality Noted Date [...] NOB vi Hyperemesis Gravidarum Mild 01/22/2023 04/22/2024 Encounters Date Type Department Care Team Description 04/22/2024 2:22 PM CDT - 04/22/2024 11:59 PM CDT Hospital Encounter Department of Laboratory Medicine in [place], [place] [address], [place] [address] Hailey Monroe CNM, D.N.P. Examination Test With Positive Result (HCC) Discharge Disposition: Home or Self Care 04/22/2024 2:22 PM CDT - 04/22/2024 11:59 PM CDT Hospital Encounter Department of Laboratory Medicine in [place], [place] [address] [place] [address] Hailey Monroe CNM, D.N.PMarlon Examination Test With Positive Result (HCC) Discharge Disposition: Home or Self Care 04/22/2024 2:00 PM CDT Initial Department of Obstetrics and Gynecology in [address] [address] Hailey Monroe CNM, D.N.P. GA: 9w2d Discharge Disposition: Home or Self Care 04/22/2024 1:30 PM CDT [facility] Department of Obstetrics and Gynecology in [address] [address] Hailey Monroe CNM, D.N.P. Examination Test With Positive Result (HCC) 04/07/2024 1:00 PM CDT Initial Department of Obstetrics and Gynecology in [address] [address] David Lock M.D. Dettmann, Heather B, RYuliana GA: 7w1d Discharge Disposition: Home or Self Care from Last 3 Months Family History Medical History Relation Name Comments Rheumatic fever Brother 1 No Known Problems Father Hypertension Maternal Grandfather David Bacon No Known Problems Mother Cancer Paternal Grandmother Roxi Stuart Cirrhosis and chronic liver disease Paternal Grandmother Roxi Stuart Esophageal cancer Paternal Grandmother Roxi Sood ldt Liver disease Paternal Grandmother Roxi Soodldt Liver cirrhosis Other cancer Paternal Grandmother Roxi Fuchshildt E sophageal Cancer Relation Name Status Comments Brother 1 Brother 2 Alive Brother 3 Alive Father Maternal Grandfather David Bacon Mother Paternal Grandfather Paternal Grandmother Roxi Stuart Social History Tobacco Use Types Packs/Day Years Used Date Smoking Tobacco: Never Smokeless Tobacco: Never Tobacco Cessation:Counseling Given: Not Answered Alcohol Use Standard Drinks/Week Comments Not Currently 0 (1 standard drink = 0.6 oz pur e alcohol) [facility] Utilities Answer Date Recorded In the past 12 months has th e [employer], gas, oil, or water company threatened to shut off services in your [...] often do you attend chur ch or church services? 1 to 4 times per year 11/30/2022 Do you belong to any clubs o r organizations such as anabaptism groups, unions, fraternal or athletic groups, or [...] Answer Date Recorded PHQ-2 Score 0 04/07/2024 [facility] of Occupat ional Health - Occupational Stress [...] your living situation today? I have a [facility] place to live 04/05/2024 Education Answer Date Recorded What is the highest level of school you have completed or the highest degree you have received? Doctorate 11/30/2022 Estimated Date of Delivery Comme nts Yes 11/23/2024 Based on Ultraso und Sex and Gender Information Value Date Recorded Sex Assigned at Female 01/09/2023 10:40 AM CDT Legal Sex Female 9:01 PM SUPER[employer] Gender Identity Female 01/09/2023 10:40 AM CDT [...] 04/22/2024 1:47 PM CDT Plan of Treatment Health Maintenance Due Date Last Done Comments HPV Vaccines (1 - 3-dose series) 2012 DTaP,Tdap,and Td Vaccines (1 - Tdap) 2016 Hepatitis B Vaccines (1 of 3 - 19+ 3-dose series) 2016 COVID-19 Vaccine (1 - 2023- season) 2024 Influenza Vaccine (#1) 2024 RSV vaccine - (32-36 weeks) or 60+ years (1 - Risk 1-dose series) 09/28/2024 Cervical/Vaginal Cancer Screening 01/22/2026 01/22/2023 Depression Screening (Annual PHQ-2) Completed 04/07/2024 Chlamydia and Gonorrhea Screening Discontinued 04/22/2024, 01/22/2023 HIV Screening Completed 04/22/2024, 01/16/2023, 12/05/2022 Hepatitis C Screening Completed 04/22/2024 , 01/16/2023, 12/05/2022 IPV Vaccines Aged Out No longer eligi ble based on patient's age to complete this topic Pneumococcal vaccine (0-64 years) Aged Out No longer eligible b ased on patient's age to complete this topic Procedures Procedure Name Priority Date/Time Associated Diagnosis [...] CDT Examination Test With Positive Result (HCC) [place] URINALYSIS AUTO WO MICRO Routine 04/22/2024 2:40 [...] S Negative Negative 04/23/2024 8:39 AM CDT [facility] Comment: Consumption of high-dose biotin supplement within 12 hours of blood collection for this test can cause false-negative results. Blood (Blood, Venous) 04/22/2024 2:44 PM CDT 04/23/2024 7:16 AM CDT Hailye Monroe CNM, D.N.P. LAB MICROBIOLOGY - BL OOD ORDERABLES Final Result [facility] [address] [place] [address] [facility] [address] [place] [address] * HIV-1/-2 Ag and Ab Scrn, Plasma (04/22/2024 2:44 PM CDT) HIV Ag/Ab Scrn, P Negative Negative 04/25/2024 10:29 AM CDT [facility] Comment: Negative result does not rule out [...] P Negative Negative 04/25/2024 10:29 AM CDT [facility] Comment: Negative result does not rule out HIV infection. If exposure to HIV infection occurred <14 days ago, contact the laboratory to request addition of HIV-1/HIV-2 RNA detection , Plasma (HPP12). Blood (Blood, Venous) 04/22/2024 2:44 PM CDT 04/23/2024 6:53 PM CDT Hailey Monroe CNM, D.N.P. LAB MICROBIOLOGY - BL OOD ORDERABLES Final Result Performing Organization Address [facility] de Phone Number [address] [address], [facility] in [address] [address] * Syphilis Total Antibody with Reflex, Serum (04/22/2024 2:44 PM CDT) Syphilis Total Ab w/ Reflex Nonreactive Nonreactive 04/25/2024 9:17 AM CDT [facility] Comment: No serologic evidence of infection with T. pallidum (syphilis). ??Repeat testing may be considered in patients with suspected acute or primary syphilis in 2-4 weeks. For additional information on interpretation of the syphilis reverse algorithm and results, see: [email or web address] Blood (Blood, Venous) 04/22/2024 2:44 PM CDT 04/23/2024 6:53 PM CDT Hailey Monroe CNM, D.N.P. LAB BLOOD ADD-ON Hannah l Result Performing Organization Address [facility] Co de Phone Number [address] [address], [facility] in [address] [address] * HBs Antigen , Serum (04/22/2024 2:44 PM CDT) HBs Antigen , S Non reactive Non reactive 04/22/2024 9:57 PM CDT [facility] Blood (Blood, Venous) 04/22/2024 2:44 PM CDT 04/22/2024 9:21 PM CDT Hailey Monroe CNM, D.N.P. LAB MICROBIOLOGY - BL OOD ORDERABLES Final Result [facility] [address] [place] [address], [facility] - [facility] [address] [place] [address] * Hemoglobin Electrophoresis Evaluation (04/22/2024 2:44 PM CDT) Hb A 97.3 95.8 - 98.0 % 04/25/2024 2:48 PM CDT [facility] Hb F 0.0 0.0 - 0.9 % 04/25/2024 2:48 PM CDT DTL Hb A2 2.7 2.0 - 3.3 % 04/25/2024 2:48 PM CDT [facility] Comment: ----ADDITIONAL INFORMATION---- This test has been modified from the call worker person's instructions. Its performance characteristics were determined by [facility] in a manner consistent with CLIA requirements. This test has not been cleared or approved by the U.S. Food and Drug Administration. HPLC Hb Variant, B See Interpretation 04/25/2024 2:48 PM CDT [facility] Comment: ----ADDITIONAL INFORMATION---- This test has been modified from the call worker person's instructions. Its performance characteristics were determined by [facility] in a manner consistent with CLIA [...] ADD-ON Hannah l Result Performing Organization Address City/[facility] Co de Phone Number [facility] [address] [place] [address], [facility] DT [address] [facility] [address] [place] [address] * Rubella Antibodies, IgG (04/22/2024 2:44 PM CDT) Rubella Ab, IgG, S Negative 04/26/2024 1:58 PM CDT [facility] Comment: ----REFERENCE VALUE---- Vaccinated: Positive (>=1.0 AI) Unvaccinated: Negative (<=0.7 AI) Rubella IgG Antibody Index <0.2 04/26/2024 1:58 PM CDT [facility] Blood (Blood, Venous) 04/22/2024 2:44 PM CDT 04/23/2024 6:51 PM CDT Hailey Monroe CNM, Nancy.N.P. LAB MICROBIOLOGY - BL OOD ORDERABLES Final Result [facility] [address] [place] [address], [facility] in [place] [address] [place] [address] * (ABNORMAL) CBC with Differential, Blood (04/22/2024 [...] CDT 04/22/2024 2:46 PM CDT us Hailey M Haak CNM, D.N.P. LAB BLOOD ADD-ON Hannah l Result [facility] [address] [place] [address], [place] [facility] in [place] [address] [place] [address] * Antibody Screen, RBC (with reflex Antibody ID) (04/22/2024 2:44 PM CDT) Antibody Screen NEG 10:09 PM CDT [facility] Blood (Blood, Venous) 04/22/2024 2:44 PM CDT 04/22/2024 10:09 PM CDT Hailey Monroe CNM, D.N.P. LAB BLOOD BANK TEST O RDERABLES Final Result Performing Organization Address [facility] Co de Phone Number [facility] [address] [place] [address], [facility] [address] [place] [address] * Varicella-Zoster Antibody, IgG, Serum (04/22/2024 2:44 PM CDT) Pathologist [facility] [place] Varicella-Zoster Ab, IgG, S Positive 04/26/2024 1:58 [...] OOD ORDERABLES Final Result Performing Organization Address City/[facility]/ZIP Co de Phone Number [facility] [address] [place] [address] [place] [address], [facility] in [place] [address] [place] [address] * Chlamydia / Gonorrhoeae Amplified RNA (04/22/2024 2:42 PM CDT) [facility] Source Swab, Vagina 04/22/2024 11:04 PM CDT [facility] Chlamydia trachomatis amplified RNA Negative Negative 04/22/2024 11:04 PM CDT [facility] Source Swab, Vagina 04/22/2024 11:04 PM CDT [facility] Neisseria gonorrhoeae amplified RNA Negative Negative 04/22/2024 11:04 PM CDT [facility] Swab (Vagina) 04/22/2024 2:4 2 PM CDT 04/22/2024 7:11 PM CDT Hailey Monroe CNM, D.N.P. LAB MICROBIOLOGY - [facility] ORDERABLES Final Result [facility] [address] [place] [address], [facility] [address] [place] [address] * (ABNORMAL) Urinalysis with Microscopic if Indicated (04/22/2024 2:40 PM CDT) [facility] Source Urine, Urine, Midstream 04/22/2024 3:11 PM [...] 8.0 04/22/2024 3:11 PM CDT [facility] Specific [place] 1.018 1.001 - 1.035 04/22/2024 3:11 PM CDT [facility] Urobilinogen 0.2 0.2 - 1.0 mg/dL 04/22/2024 3:11 PM CDT [facility] Urine (Urine, Midstream) 04/22/2024 2:40 PM CDT 04/22/2024 3:01 PM CDT us Hailey Monroe CNM, D.N.P. LAB URINE ORDERABLES Final Result Performing Organization Address [facility] Co de Phone Number [facility] [address] [place] [address], [facility] in [place] [address] [place] [address] * (ABNORMAL) Microscopic Automated (04/22/2024 2:40 PM [...] URINE ORDERABLES Final Result Performing Organization Address City/[facility]/ZIP Co de Phone Number [facility] [address] [place] [address], [place] [facility] [facility] in [place] [address] [place] [address] * Bacterial Culture, Aerobic + Susceptibility, Urine (04/22/2024 2:40 PM CDT) Urine Culture Urogenital microbiota, susceptibilities not performed per laboratory criteria. 04/23/2024 12:52 PM CDT [facility] Urine (Urine, Midstream) 04/22/2024 2:40 PM CDT 04/22/2024 7:12 PM CDT Comment:Specimen Source Site : Urine us Hailey Monroe CNM, D.N.P. LAB MICROBIOLOGY - Lumicity ORDERABLES Final Result [facility] [place] [address], [facility] in [place] [address] [place] [address] * US OB First Trimester (04/22/2024 1:27 [...] OB/EHR assignment: , JIMMY: INTRAUTERINE Pole: Normal, Blair-Rump Length: 25.2 mm Gestational Sac: Normal Yolk [...] OB/EHR assignment: , JIMMY: INTRAUTERINE Pole: Normal, Blair-Rump Length: 25.2 mm Gestational Sac: Normal Yolk [...] 11:26 AM CDT) 02/03/2023 3:15 PM CDT [facility] Report electronically signed by ROYCE Cedeno (ASCP) I verify that I have examined all relevant slides/materials for the specimen(s) and rendered or confirmed the diagnosis. 02/03/2023 3:15 PM CDT [facility] Gross Description Received specimen in a ThinPrep vial. 02/03/2023 3:15 PM CDT [facility] Pap Test Source Cervical/Endocervi dipesh 02/03/2023 3:15 [...] CDT 01/23/2023 6:45 AM CDT us Sydni Dean M.D. LAB PAP PATHDX ORDERABLES Fi nal Result [facility] [address] [place] [address], [place] [facility] [address] [facility] [address] [place] [address] from Last 3 Months or Most Recently Relevant to Health Maintenance Insurance [facility] Member Subscriber Plan / Payer (Ef fective 2022-Present) Name:VALENTINA LANDA Relation to Subscriber:Spouse Name:JOHNNY LANDA Date of :1995 Address: [address] [place] [address] Payer ID:Not on file Type:PPO Address: [facility] [address] [place] [address]
--- OUTSIDE RECORDS SUMMARY | 2024-07-08 11:00 | XMS_ITS | Encounter Summary ---
Author Organization [facility] Address [address] [place] [address] Care Team Providers Care Sailing Instructor Name Role Phone Unavailable Primary Care Provider Unavailabl e Encounter Details Date Type Department Care Team (Latest Contact Info) Description 04/22/2024 2:22 PM CDT - 04/22/2024 11:59 PM CDT Hospital Encounter Department of Laboratory Medicine in [place], [place] [address] [place] [address] Hailey Monroe CNM, D.N.P. [address] [place] [address] Examination Test With Positive Result (HCC) Discharge Disposition: Home or Self Care Social History Tobacco Use Types Packs/Day Years Used Date Smoking Tobacco: Never Smokeless Tobacco: Never Alcohol Use Standard Drinks/Week Comments Not Currently 0 (1 standard drink = 0.6 oz pur e alcohol) [facility] Utilities Answer Date Recorded In the past 12 months has e [employer], gas, oil, or water [employer] threatened to shut off services in your [...] often do you attend chur ch or pentecostalism services? 1 to 4 times per year 11/30/2022 Do you belong to any clubs o r organizations such as catholic groups, unions, fraternal or athletic groups, or [...] Answer Date Recorded PHQ-2 Score 0 04/07/2024 [facility] [place] [facility] of Occupat ional Health - [...] your living situation today? I have a [facility] place to live 04/05/2024 Education Answer Date Recorded What is the highest level of school you have completed or the highest degree you have received? 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 LAB URINE ORDERABLES Final Result [facility] [address] [place] [address], [facility] [place] [address] [place] [address] * (ABNORMAL) Urinalysis with Microscopic if Indicated [...] 8.0 04/22/2024 3:11 PM CDT [facility] Specific [place] 1.018 1.001 - 1.035 04/22/2024 3:11 PM CDT [facility] Urobilinogen 0.2 0.2 - 1.0 mg/dL 04/22/2024 3:11 PM CDT [facility] Urine (Urine, Midstream) 04/22/2024 2:40 PM CDT 04/22/2024 3:01 PM CDT Hailey Monroe CNM, D.N.P. LAB URINE ORDERABLES Final Result [facility] [address] [place] [address], [facility] in [address] [address] * Bacterial Culture, Aerobic + Susceptibility, Urine (04/22/2024 2:40 PM CDT) Urine Culture Urogenital microbiota, susceptibilities not performed per laboratory criteria. 04/23/2024 12:52 PM CDT [facility] Urine (Urine, Midstream) 04/22/2024 2:40 PM CDT 04/22/2024 7:12 PM CDT Comment:Specimen Source Site : Urine Hailey Monroe CNM, D.N.P. LAB MICROBIOLOGY - GE NERAL ORDERABLES Final Result [facility] [address] [place] [address], [facility] in [place] [address] [place] [address] documented in this encounter Visit Diagnoses Diagnosis Examination Test With Positive Result (HCC) documented in this encounter Additional Health Concerns Assessment Noted Time PHQ-9 Depression Total Score: 1 04/07/20 24 1:08 PM CDT documented as of this encounter
--- OUTSIDE RECORDS SUMMARY | 2024-07-08 11:00 | XMS_ITS | Clinical Summary ---
Author Organization [facility] Address [place], [place] [address] Care Team Providers Care Table Saw Operator Name Role Phone Geraldine Gustafson MD Unavailable [phone] Kourtney Kate MD Primary Care Provi john Allergies Active Allergy Reactions Criticality Noted Date Comments Nickel Rash Low 07/01/2023 Medications No known medications Active Problems Problem Noted Date Diagnosed Date 37 weeks gestation of 07/01/2023 Type O blood, Rh negative 01/22/2023 Mild hyperemesis gravidarum, antepartum 01/23/20 23 07/01/2023 Need for prophylactic vaccin ation and inoculation against rubella alone 01/22/2023 07/01/2023 Resolved Problems Problem Noted Date Diagnosed Date Resolved Date 18 weeks gestation of 02/26/2023 07/01/2023 Family History Medical History Relation Name Comments Rheumatic fever Brother 1 Hypertension Maternal Grandfather Esophageal cancer Paternal Grandfather Cancer Paternal Grandmother Relation Name Status Comments Brother 1 Alive Brother 2 Alive Brother 3 Alive Maternal Grandfather Paternal Grandfather Paternal Grandmother Social History Tobacco Use Types Packs/Day Years Used Date Smoking Tobacco: Never Passive Smoke Exposure: Never Smokeless Tobacco: Never Tobacco Cessation:Counseling Given: Not Answered Alcohol Use Standard Drinks/Week Comments Not Currently 0 (1 standard drink = 0.6 oz pur e alcohol) Social Connections Answer Date Recorded Frequency of Communication with Friends and Fami ly Not on file 02/18/2023 Sex and Gender Information Value Date Recorded Sex Assigned at Not on file Gender Identity Not on file Sexual Orientation Not on file Obstetrics History Para Term AB IAB SAB Ectopic Multiple Livin g Live Births 1 1 1 0 0 0 0 0 0 1 1 Date Outcome GA Total Labor Labor/2nd/3rd Weight Sex Type Anes PTL Florinda A1 A5 Name Clin 2022 Term 37w 5d 16h 35m 16h 12m/0h 18m/0h 05m 3 kg (6 lb 9.8 oz) F Vag-S pont Livin g 8 9 DAMIÁN ,Nicole Thomas MD Complications:Protracted act toby phase Delivery Location:Hospital ( [facility]) Last Filed Vital Signs Vital Sign Reading Time Taken Comments Blood Pressure 120/66 07/03/2023 9:11 AM CDT Pulse 101 07/03/2023 9:11 AM CDT Temperature 36.6 ??C (97.8 ??F) 07/03/2023 9:00 AM CD T Respiratory Rate 16 07/03/2023 9:11 AM CDT Oxygen Saturation 98% 07/03/2023 1:25 AM CDT Inhaled Oxygen Concentration - - Weight 84.6 kg (186 lb 9.6 oz) 07/01/2023 3:20 P M CDT Height 165.1 cm (5' 5) 07/01/2023 3:11 PM CDT Body Mass Index 31.05 07/01/2023 3:11 PM CDT Plan of Treatment Health Maintenance Due Date Last Done Comments Tdap 2008 Depression screening for age 12+ 2009 HIV for age 15-65 2012 HPV series for age 9-26 (1 - 3-dose series) 2012 BMI (ht and wt on same day) for age 18+ 12/04/2015 Hepatitis C screening for age 18-79 12/04/2015 Tetanus booster 2017 COVID-19 vaccine series (2023- season) 2024 Influenza for age 9-49 05/01/2024 Pap test for age 21-65 01/20/2026 3 (Verified in Care Everywhere or Patient Record) Pneumococcal series for age 6-64 Aged Out No longer eligible based on patient's age to complete this topic Advance Directives * Full Code (Latest Code Status on File) Date Activated Date Inactivated Comments 07/01/2023 6:04 PM 07/03/2023 6:21 PM Question Answer Comments Code Status Discussion: Other Care Teams Table Saw Operator Relationship Specialty Start Date End Date Kourtney Kate MD [address] [facility] [place] [address] PCP - General Family Practice 02/26/23 Geraldine Gustafson MD [address] [place] [address] Pediatric 02/06/23
--- OUTSIDE RECORDS SUMMARY | 2024-07-08 11:00 | XMS_ITS | Encounter Summary ---
Author Organization [facility] Address [address] [place] [address] Care Team Providers Care [place] Attendant Name Role Phone Unavailable Primary Care Provider Unavailabl e Encounter Details Date Type Department Care Team (Latest Contact Info) Description 04/22/2024 1:30 PM CDT Silent Schedule Department of Obstetrics and Gynecology in [place], [place] [address] [place] [phone] Hailey Monroe, DHRUVM, D.N.P. [address] [place] [phone] Examination Test With Positive Result (HCC) Social History Tobacco Use Types Packs/Day Years Used Date Smoking Tobacco: Never Smokeless Tobacco: Never Alcohol Use Standard Drinks/Week Comments Not Currently 0 (1 standard drink = 0.6 oz pur e alcohol) [facility] Utilities Answer Date Recorded In the past 12 months has [facility] [employer], gas, oil, or water [employer] threatened to shut off services in your [...] 11/30/2022 How often do you attend chur or anglican services? 1 to 4 times per year 11/30/2022 Do you belong to any clubs o r organizations such as worship groups, unions, fraternal or athletic groups, or [...] Answer Date Recorded PHQ-2 Score 0 04/07/2024 [facility] - Occupational [...] your living situation today? I have a [facility] place to live 04/05/2024 Education Answer Date Recorded What is the highest level of school you have completed or the highest degree you have received? 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 Not on file Not on file documented as of this encounter Plan of Treatment Not on file documented as of this encounter Procedures Procedure Name Priority Date/Time Associated Diagnosis Comments US OB FIRST TRIMESTER RAD - Semiurgent (Fast; most ED patients; some inpatients) 04/22/2024 1:27 PM CDT Examination Test With Positive Result (HCC) documented in this encounter Results * US OB First Trimester (04/22/2024 1:27 [...] OB/EHR assignment: , JIMMY: INTRAUTERINE Pole: Normal, [place]-Rump Length: 25.2 mm Gestational Sac: Normal Yolk [...] OB/EHR assignment: , JIMMY: INTRAUTERINE Pole: Normal, [place]-Rump Length: 25.2 mm Gestational Sac: Normal Yolk [...]
--- OUTSIDE RECORDS SUMMARY | 2024-07-08 11:00 | XMS_ITS | Encounter Summary ---
Author Organization [facility] Address [address] [place] [address] Care Team Providers Care Hotel Room Attendant Name Role Phone Unavailable Primary Care Provider Unavailabl e Reason for Referral * Outpatient (Routine) - Authorized Specialty Diagnoses / Procedures Referred By Thomas t Referred To Contact Obstetrics and Gynecology Diagnoses Encounter For Supervision Of Normal Unspecified Trimester (HCC) Hailey Monroe CNM, D.N.P. [address] [place] [phone] Phone: tel: fax: [facility] Region Referral ID Status Reason Start Date Expiration Date V isits Requested Visits Authorized [id number] Authorized 04/22/2024 10/22/2025 1 1 * Outpatient (Routine) - Authorized Specialty Diagnoses / Procedures Referred By Thomas marquez Referred To Contact Obstetrics and Gynecology Diagnoses Encounter For Supervision Of Normal Unspecified Trimester (HCC) Hailey Monroe CNM, D.N.P. [address] [place] [phone] Phone: tel: fax: [facility] Region Referral ID Status Reason Start Date Expiration Date V isits Requested Visits Authorized [id number] Authorized 04/22/2024 10/22/2025 1 1 * Outpatient (Routine) - Authorized Specialty Diagnoses / Procedures Referred By Thomas marquez Referred To Contact Obstetrics and Gynecology Diagnoses Encounter For Supervision Of Normal Unspecified Trimester (HCC) Hailey Monroe CNM, D.N.P. [address] [place] [address] Phone: tel: fax: [facility] Region Referral ID Status Reason Start Date Expiration Date V isits Requested Visits Authorized [id number] Authorized 04/22/2024 10/22/2025 1 1 Reason for Visit * Reason Comments Routine Visit 9w 2d * Outpatient (Routine) - Closed Specialty Diagnoses / Procedures Referred By Thomas marquez Referred To Contact Obstetrics and Gynecology Diagnoses Examination Test With Positive Result ([facility]) Hailey Monroe CNM, D.N.P. [address] [place] [address] Phone: tel: fax: [facility] Region Referral ID Status Reason Start Date Expiration Date Visits Re quested Visits Authorized [id number] Closed 04/07/2024 10/07/2025 1 1 Encounter Details Date Type Department Care Team (Latest Contact Info) Description 04/22/2024 2:00 PM CDT Initial Department of Obstetrics and Gynecology in [place], [place] [address] [place] [phone] Hailey Monroe CNM, D.N.P. [address] [place] [phone] GA: 9w2d Discharge Disposition: Home or Self Care Social History Tobacco Use Types Packs/Day Years Used Date Smoking Tobacco: Never Smokeless Tobacco: Never Tobacco Cessation:Counseling Given: Not Answered Alcohol Use Standard Drinks/Week Comments Not Currently 0 (1 standard drink = 0.6 oz pur e alcohol) [facility] Utilities Answer Date Recorded In the past 12 months has th e electric, gas, oil, or water [employer] threatened to shut off services in your [...] often do you attend chur ch or yarsanism services? 1 to 4 times per year 11/30/2022 Do you belong to any clubs o r organizations such as anabaptist groups, unions, fraternal or athletic groups, or [...] Answer Date Recorded PHQ-2 Score 0 04/07/2024 [facility] [...] your living situation today? I have a [facility] place to live 04/05/2024 Education Answer Date Recorded What is the highest level of school you have completed or the highest degree you have received? 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 - 04/22/2024 2:00 PM CDT SUBJECTIVE CHIEF COMPLAINT / REASON FOR VISIT Valentina Landa is a 28 y.o. . No LMP recorded (lmp unknown). Patient is . Estimated Date of Delivery: 11/24/23 determined by 9 week ultrasound. Gestational age is 9w2d. Her previous was uncomplicated. Specific complaints today include: nausea, she did receive a vitamin B infusion which was helpful. Not having any vomiting. She is interested in checking her B vitamin levels today. No mood concerns today. Partner is her . 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 HISTORY OF PRESENT CONDITION OB History Para Term AB Living 2 1 1 1 SAB IAB Ectopic Molar Multiple Live Births 1 # Outcome Date GA Lbr Peterson/2nd Weight Sex Type Anes PTL Lv 2 Current 1 Term 07/01/23 37w5d 16:12 / 00:18 3 kg F Vag-Spont CAMILO Obstetric Comments Risk Stratification=green Past Medical History: Diagnosis Date Abnormal Pap Smear Cervix Anemia Hyperemesis Gravidarum Mild (HCC) 01/22/2023 Varicella Past Surgical History: Procedure Laterality Date EXTRACTION TOOTH Family History Problem Relation Name Age of Onset No Known Problems Mother No Known Problems Father Rheumatic fever Brother Hypertension Maternal Grandfather David Bacon Esophageal cancer Paternal Grandmother Roxi Fuchshildt Cancer Paternal Grandmother Roxi Stuart Cirrhosis and chronic liver disease Paternal Grandmother Roxi Stuart Other cancer Paternal Grandmother Roxi Stuart Esophageal Cancer Liver disease Paternal Grandmother Roxi Stuart Liver cirrhosis Social History Socioeconomic History Marital status: Spouse name: Gerardo Number of children: 1 Highest education level: Doctorate Occupational History Occupation: Chiropractor Comment: Specializes in chiropractic Tobacco Use Smoking status: Never Smokeless tobacco: Never Vaping Use Vaping status: never used Substance and Sexual Activity Alcohol use: Not Currently Drug use: Never Sexual activity: Yes Partners: Male control/protection: None Social History Narrative Living with spouse and [...] I have a steady place to live Allergies Allergen Reactions Nickel Rash REVIEW OF SYSTEMS Limited DK was negative except for noted in HPI OBJECTIVE VITAL SIGNS Blood Pressure: (104)/(69) 104/69 Height: [166.2 cm] 166.2 cm Weight: [65.7 kg] 65.7 kg BSA (Calculated - sq m): [1.74 sq meters] 1.74 sq meters BMI (Calculated): [23.8 kg/m??] 23.8 kg/m?? Pulse Rate: [79] 79 PHYSICAL EXAM PHYSICAL GENERAL EXAM: Thyroid: Normal (Comment: OK) Heart: Normal (Comment: OK) Lungs: Normal Breasts: (Comment: Deferred per patient request) PELVIC EXAM: DIAGNOSTICS I have reviewed the OB ultrasound(s) The patient's PHQ-9 and/or KARNE-7 scores were reviewed and assessed. 04/07/2024 1:08 PM PHQ9 Score PHQ-9 Total Score (max 27) 1 The patient was screened for preeclampsia risk factors prior to 16 weeks gestation. The patient hasthe following risk factors: Major Risk Factors (2 points): major risk factors: none, no risk factors Minor risk factors (1 point) : minor risk factors: none, no risk factors Total score of major and minor risk factors: 0 The patient does not meet the criteria for prophylactic aspirin use. ASSESSMENT / PLAN Expected Total Weight Gain: 11.5 kg-16 kg Initial labs: ordered Problem list reviewed and updated. Genetic screening: genetic screening briefly reviewed. Patient will check with insurance company about coverage Consults ordered: None Diagnosis Plan 1. Encounter For Supervision Of Normal Unspecified Trimester (HCC) Obstetrics and Gynecology office visit (clinic) Vitamin B12 Assay Obstetrics and Gynecology office visit (clinic) Obstetrics and Gynecology office visit (clinic) OB [facility] Vitamin B6 Profile (PLP and PA) 2. Type O Blood Rhesus Negative 3. Examination Test With Positive Result (HCC) Obstetrics and Gynecology - Obstetrics consult (clinic) 4. Nausea Vitamin B12 Assay Vitamin B6 Profile (PLP and PA) Patient Education Ready to learn, no apparent learning barriers were identified. Reviewed options with patient regarding diagnosis and treatment plan, patient expressed understanding of and agreement with plan. Encouraged to reach out with further questions or concerns. Hailey Monroe CNM, D.N.P. documented in this encounter Plan of Treatment Scheduled Orders Name Type Priority Associated Diagnoses Orde r Schedule Vitamin B12 Assay Lab Routine Encounter For Supervision Of Normal Unspecified Trimester (HCC) Nausea Expected: 04/22/2024, Expires: 07/23/2025 [facility] RAD - Routine (most inpatients and all outpatients) Encounter For Supervision Of Normal Unspecified Trimester (HCC) Expected: 07/08/2024, Expires: 07/23/2025 Vitamin B6 Profile (PLP and PA) Lab Routine Encounter For Supervision Of Normal Unspecified Trimester (HCC) Nausea Expected: 04/22/2024, Expires: 07/23/2025 Scheduled Referrals Name Type Priority Associated Diagnoses Orde r Schedule Obstetrics and Gynecology office visit (clinic) Outpatient Referral Routine Encounter For Supervision Of Normal Unspecified Trimester (HCC) Expected: 05/13/2024 (Approximate), Expires: 07/23/2025 Obstetrics and Gynecology office visit (clinic) Outpatient Referral Routine Encounter For Supervision Of Normal Unspecified Trimester (HCC) Expected: 06/10/2024 (Approximate), Expires: 07/23/2025 Obstetrics and Gynecology office visit (clinic) Outpatient Referral Routine Encounter For Supervision Of Normal Unspecified Trimester (HCC) Expected: 07/08/2024 (Approximate), Expires: 07/23/2025 documented as of this encounter Procedures Procedure Name Priority Date/Time Associated Diagnosis Comments CHLAMYDIA/GONORRHOE AE AMPLIFIED RNA Routine 04/22/2024 2:42 PM CDT Examination Test With Positive Result (HCC) documented in this encounter Results * Chlamydia / Gonorrhoeae Amplified RNA (04/22/2024 [...] MICROBIOLOGY - GE NERAL ORDERABLES Final Result [facility] [address] [place] [address], [facility] [id number] documented in this encounter Visit Diagnoses Diagnosis Encounter For Supervision Of Normal Unspecified Trimester (HCC)- Primary Type O Blood Rhesus Negative Examination Test With Positive Result (HCC) Nausea documented in this encounter Additional Health Concerns Assessment Noted Time PHQ-9 Depression Total Score: 1 04/07/20 24 1:08 PM CDT documented as of this encounter
--- OUTSIDE RECORDS SUMMARY | 2024-07-08 11:00 | XMS_ITS ---
Author Organization [facility] Address [address] [place] [address] Care Team Providers Care Osteopathic Resident Name Role Phone Unavailable Unavailable Unavailable Surgery Details Not on file Complications Check Surgery Details section. Procedure Estimated Blood Loss Check Surgery Details section. Procedure Findings Check Surgery Details section. Procedure Specimens Taken Check Surgery Details section.
--- OUTSIDE RECORDS SUMMARY | 2024-07-08 11:01 | XMS_ITS | Continuity of Care Document ---
Author Organization [place] [facility], [facility] - Main Office Address [address] [place] [address] [place] [address] Assessment Encounter Date Assessment Date Assessment LastModified by Organization Details LastModified Time 04/29/2024 04/29/2024 1. NOB at 10.2 weeks gestation. - Reviewed model of care, orientation, educational folder, tour given and projected course of . - NOB reviewed. Pap not indicated. - RTC in 6 weeks. Time spent face to face to establish new OB care and coordinating a plan of care was 75 minutes. [email or web address] Not available 04/29/2024 11:54:47 Plan of Treatment Reminders Order Date Submit Date Provider Last Modified By Organization Details Last Modified Time Details Appointments None record ed. Lab None record ed. Referral None record ed. Procedures None record ed. Surgeries None record ed. Imaging None record ed. Medication Orders None record ed. Patient TargetsNo targets recorded. Patient InstructionsNo instructions recorded. Reason for Referral None Reported. Problems Name Problem SNOMED Code Status Onset Date Resolution Date Notes Provider Name and Address Organization Details Recorded Time Pregnanc y 81622183 Completed 07/07/2024 Luma Sotomayor APRN, AHMET, WHNP [address] [place] [address], [phone] , [facility] 4 23:04:49 Pregnanc y 27177692 Completed Luma Sotomayor APRN, AHMET, WHNP [address] [place] [address], [phone] , [facility] 4 20:26:58 RhD negative 785418532 Active 2023 Will decline RhoGam at 28 weeks, had RhoGam PP Luma Sotomayor APRN, AHMET, NP [address] [place] [address], [phone] , [facility] 4 10:45:45 RhD negative 829008292 Completed 2023 Will decline RhoGam at 28 weeks, had RhoGam PP Luma Sotomayor APRN, AHMET, [facility] [address] [place] [address], [phone] , [facility] 4 10:45:45 Problem Notes None recorded. Procedures Surgical History Date Name Laterality Status Provider Name and Address Organization Details Recorded Time 12/29/2022 Date of Last Pap Smear completed Luma Sotomayor APRN, AHMET, KALEN [address] [place] [address], [phone], [facility] 04/29/2024 10:40:38 Imaging Results None recorded. Procedure Notes None recorded. Medical Equipment None Reported. Allergies No known drug allergies Vitals Date Recorded Body weight Body mass index (BMI) Body height Heart rate Systolic blood pressure Diastolic blood pressure Provider Name and Address Organization Details Last Updated DateTime 4 55308.3 0128 g 24 kg/m2 165.1 cm 60 /min 110 mm[Hg] 68 mm[Hg] Adan glover RN [address] [place] [address], [phone] [place] [address] [facility] 4 10:17:29 Social History Question Answer Notes LastModified by Organizat ion Details LastModified Time Tobacco Smoking Status Never Smoker Fabiana RN [address] [place] [address], [phone], [facility] 04/29/2024 10:20:53 Do You Have An Advance Directive? No Information not available 04/29/2024 What Is Your Level Of Alcohol Consumption? None Information not available 04/29/2024 If You Are , What Was Your Level Of Alcohol Consumption Prior To ? Occasional Information not available 04/29/2024 Are You Blind Or Do You Have Difficulty Seeing? No Information not available 04/29/2024 Is Blood Transfusion Acceptable In An Emergency? Yes Information not available 04/29/2024 Have You Been To An Area Known To Be High Risk For COVID-19? No Information not available 04/29/2024 Are You Currently Employed? Yes Information not available 04/29/2024 Are You Deaf Or Do You Have Serious Difficulty Hearing? No Information not available 04/29/2024 What Type Of Diet Are You Following? REGULAR Information not available 04/29/2024 What Is The Highest Grade Or Level Of School You Have Completed Or The Highest Degree You Have Received? 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 No Information not available 04/29/2024 Have There Been Any Changes To Your Family Or Social Situation? No Information not available 04/29/2024 Are There Any Guns Present In Your Home? No Information not available 04/29/2024 Have You Recently Or Are You Planning To Travel To An Area With Zika Virus? 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 Yes Information not available 04/29/2024 Have You Ever Experienced Abuse From Family Members, Friends, Past Relationships, Etc? No Information not available 04/29/2024 Have You Ever Been Hit/kicked/slapp ed Or Raped In Your Current Relationship? No Information not available 04/29/2024 Have You Been Exposed To Heavy Metals? No Information not available 04/29/2024 Have You Been Exposed To Chemicals Or Toxins? No Information not available 04/29/2024 What Is Your Relationship Status? Information not available 04/29/2024 Are There Any Occupational Health Risks Where You Work? Yes Information not available 04/29/2024 Do You Use Protection During Sex? No Information not available 04/29/2024 What Is Your Relationship Status? Information not available 04/29/2024 Are You Sexually Active? Yes Information not available 04/29/2024 Are You Passively Exposed To Smoke? No Information not available 04/29/2024 Do You Feel Stressed (tense, Restless, Nervous, Or Anxious, Or Unable To Sleep At Night)? [id number] Information not available 04/29/2024 Do You Use Any Illicit Or Recreational Drugs? No Information not available 04/29/2024 Do You Use Sunscreen Routinely? No Information not available 04/29/2024 Have You Recently Traveled Abroad? No Information not available 04/29/2024 Do You Have Any Dietary Restrictions? No Information not available 04/29/2024 Do You Or Have You Ever Used Any Other Forms Of Tobacco Or Nicotine? No Information not available 04/29/2024 Sex: Unknown Functional Status Question Answer Note LastModified by [employer] ion Details LastModified Time Do you have transportation difficulties? No Information not available 04/29/2024 What is your exercise level? Moderate Information not available 04/29/2024 Mental Status Question Answer Note LastModified by Organization D etails LastModified Time Do you have difficulty concentrating, remembering or making decisions? No Information no t available 04/29/2024 Family History Relationship Description Onset Age of this Age Resolved Age Notes LastModified by Organization Details LastModified Time Father No current problems or disability [email or web address] Not available 04/29 10:19:43 Mother No current problems or disability [email or web address] Not available 04/29 10:19:43 Medical History Condition Response Allergies (Food, seasonal, environmental ) N Heart Problems N Blood Transfusion N Kidney or Bladder Problems N Thyroid Problems N Lung Disease N Dermatologic Disorders N GI Problems N Acne N Breast Problem N Eating Disorder N Gestational Diabetes N Anemia N Hematologic disorders N Anesthesia Complications N History of STI N Polycystic ovary syndrome N Psychiatric Illness N Anxiety Disorder N Diabetes N Autoimmune disease N Arthritis N Infertility N Acid Reflux (GERD) N Cancer N Eczema N Abuse/Domestic Violence N Asthma N Trauma/Violence N Endometriosis N High Cholesterol N Depression/ depression N Heart Disease N Headaches N Fibromyalgia N Pre-Eclampsia N Hypertension N Osteoporosis N Thrombophilias N Gynecological History Statement/Question Response Abnormal Pap N History of sexually transmitted infectio n? N Date of LMP 02/02/2024 Sexually Active? Y Post Menopausal Bleeding N STIs/STDs N HPV Vaccine N Date of Last Pap Smear 12/29/2022 Sexual Problems? N LMP Approximate Hormone Replacement Therapy N Obstetrics History GPAL:G 2 P 1 0 0 1 Type Value Multiple Births 0 Full Term 1 Induced 0 Spontaneous 0 Premature 0 Living 1 Ectopics 0 Total 2 Past Encounters Encounter ID Performer Location Encounter Start Date Encounter Closed Date Diagnosis/Indication Diagnosis SNOMED-CT Code Diagnosis ICD10 Code [id number] Luma Sotomayor, MICAH, AHMET, ROBERT [facility] [address] [place] [phone] 04/29/2024 10:06:07 04/29/2024 11:58:19 Routine care 947132763 Z34.81 Z3A.10 Health Concerns Section Related Observation LastModified by Organization Detai ls LastModified Time None Recorded Concern Status LastModified by Organization Details LastModified Time None Recorded Payers Encounter Date Sequence Insurance Name Policy Number Policy Pulido Covered Member ID Pulido Member ID Guarantor Name 04/29/2024 1 [place] [id number] Valentina Syeda [id number] Valentina Landa Notes Date Note Type Note Provider Name and Address Organization Details Recorded Time 04/29/2024 text/html HPI Notes: This is a 28 year old female presenting to the clinic for a NOB at 10.2 weeks gestation, dated by 1st trimester U/S, patient is still pumping and unsure of definite LMP. Planned with partner, Gerardo. Feeling well, intermittent nausea but not bothersome. 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 NOB labs and physical exam done at [facility] last week prior to 1st trimester U/S. Reviewed Rh negative status, will decline RhoGam in but will accept PP, reviewed risks associated with this, will gain a declination form in 3rd trimester. Pap not indicated until 2025. Last baby was breech when DALILA with attempted homebirth. Once patient got to the hospital, baby had flipped. Discussed what [facility] would do if this occurs in that we would SG to a hospital and not willingly/routinel y deliver breech babies. BC orientation, tour and educational folder reviewed. Meets BC criteria. Prior care during this ? Yes, [facility]. Dating ultrasound completed or ordered? Yes, per [facility] visit. Client's thoughts on this : happy. Health Histories in chart updated/reviewed with client. Discussed nutrition, hydration, exercise, supplements (PNV, Vit D, Otis 3s) and promotion of . Advised regarding weight gain, food cautions, sibling prep, parenting, self care and mental wellness. Genetic screening informed consent provided. Informed regarding options and timeline- Patient declines genetic screening. Recommended CBE and corporate human resources manager care, resources provided in folder. Relevant OB history reviewed, concerns/questions addressed: Rh negative, past experience. [facility] orientation provided with tour. Instructions on reaching directional bore operator fuel assembler by phone (preferred) and reviewed appropriate use of patient portal. Risk assessment completed for care per [facility], Policy and Procedure Manual reviewed with client, who meets criteria for CENTER at this time. Appropriate for care at this time. Mental health status assessed by EPDS= 0 today Education checklist reviewed. Time utilized for assessment of patient and/or reviewing chart, test results, setting follow up plan, coordinating care= 75 minutes. RTC 6 weeks Luma Sotomayor APRN, AHMET, WHNP [address] [place] [address], [phone], [facility] 04/29/2024 11:58:08 OBGyn Episode Ob Episode Information Episode Created Date Number of Fetuses Patient Bloodtype Patient rh Status Prepregnancy Weight lbs Domestic Partner Domestic Partner Phone Father Name Medical Office Secretary Status 04/28/20 24 1 O Negative 142 Gerardo CLOSED Fetus Data First Name Last Name Admitted to NICU Weight (g) Sex Living Outcome Pediatric Complications Fetus ID Race Codes Race Delivery Type [id number] Problems Problem Notes Labs completed on 04/22/2024 at [facility]:Lcsskvbsg-lkqjvxjfVzslycmhi-amx reactiveRubella-negative <0.2 ZCQ-vdnlmirnKKM-zqbixtntUot F-mkkwkeceYwf-73.8 g/dLAntibody-negativeType and Screen T-Opacvtabo-iewxcoqnuwehrwtzl-negativeUrine midstream-all negative and small leuk esterase-Culture normal floraUltrasound done at 9 wks 2/7days-JIMMY per U/S 11/23/2024 Problem Name Start Date End Date Resolution Snomed Code Not e [id number] RhD negative 04/29/2024 [id number] Will d ecline RhoGam at 28 weeks, had RhoGam PP Jimmy Calculation Initial Jimmy Date Initial Exam Date Initial Exam Provider Initial Ultrasound Date Last Menstrual Period Date Ultra Sound Weeks Gestation 11/23/2024 04/28/2024 02/02/2024 0 Eighteen To Twenty Week Jimmy Update Ultra Sound Date Fundal Height At Umbil Quickening Date Ultra Sound Latest Weeks Gestation Final Jimmy Confirmed By Final Jimmy Confirmed Date Final Jimmy Date Ultra Sound Latest Days Gestation 0 [email or web address] 04/29/2024 11/24/19 25 0 Pre- Flowsheet Flowsheet Date 04/29/2024 Emery Score Blood Edema Fundus Height Fundus Units Glucose Ketones Leukocytes Nitrite Labor Signs Protein Cervic Dilation Cervic Effacement Cervic Station none Type Weight in lbs BP Diastolic BP Location Tested BP Systolic BP Type 68 R arm 110 sitting Fetus Heart Rate Present A 159 Present Fetus Movement A No Comments This is a 28 year old 1 female presenting to the clinic for a NOB at 10.2 weeks gestation, dated by 1st trimester U/S, patient is still pumping and unsure of definite LMP. Planned with partner, Gerardo. Feeling well, intermittent nausea but not bothersome. 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 NOB labs and physical exam done at [facility] last week prior to 1st trimester U/S. Reviewed Rh negative status, will decline RhoGam in but will accept PP, reviewed risks associated with this, will gain a declination form in 3rd trimester. Pap not indicated until 2025. Last baby was breech when DALILA with attempted homebirth. Once patient got to the hospital, baby had flipped. Discussed what [facility] would do if this occurs in that we would SG to a hospital and not willingly/routinely deliver breech babies. BC orientation, tour and educational folder reviewed. Meets criteria. Menstrual History Last Menstrual Date Menses Monthly On Bcp Conception Prior Menses Frequency Hcg Plus Date Menarche Onset Age 0602/02/2024 Genetic Screening And Infection History Question Response Note Patient's Age Will Be 35 Yea rs Or Older At Estimated Date of Delivery false Thalassemia (Vietnamese, Persian, Mediterranean, Or Background): MCV < 80 false Neural Tube Defect (Meningom yelocele, Spina Bifida, Or Anencephaly) false Congenital Heart Defect false Down Syndrome false Enrrique-Sachs (eg, Taoism, Cajun , Bengali-Treasure) false Tuyet Disease false Sickle Cell Disease Or Trait () false Hemophilia Or Other Blood Disorders false Muscular Dystrophy false Cystic Fibrosis false Chele's Chorea false Intellectual Disability/Autism false If Yes, Was Person Tested For Fragile X? false Other Inherited Genetic Or C hromosomal Disorder false Maternal Metabolic Disorder (eg, Type 1 Diabetes, PKU) false Patient Or Baby's Father Had A Child With Defects Not Listed Above false Recurrent Loss, Or A Stillbirth false Medications (including Suppl ements, Vitamins, Herbs, OTC Drugs), Illicit/Recreational Drugs, Alcohol true B complex (folate) , fish oil, Vitamin D and C If Yes, Agent(s) And Strength/Dosage false Any Other Genetic History false Live With Someone With TB Or Exposed To TB false Patient Or Partner Has Histo ry Of Genital Herpes false Rash Or Viral Illness Since Last Menstrual Period false History Of STD, Gonorrhea, C hlamydia, HPV, Syphilis false Other Infection History false History of HIV false History of Hepatitis false Prior GBS-infected child false Recent Travel History Outside of Country false Hemoglobinopathy Or Carrier false Other Structural Defect false Plans and Education First Trimester Discussed Date Discussion Item Discussion Note Discuss ed By 04/29/2024 Risk factors identif ied by history [place] [id number] 04/29/2024 Anticipated course o f care [place] [address] 04/29/2024 Safety (medications, supplements, seat belts, teratogens, etc) [place] [address] 04/29/2024 Labs required for wa [facility] labor/ Offered/Reviewed [place] [address] 04/29/2024 Take Vitamin D 2,000 -5,000IU daily aschwanke04/29/2024 Activity-work,fitnes s,sex,[facility] 04/29/2024 Meets [facility] 04/29/2024 [facility] 04/29/2024 [facility] 04/29/2024 Use of any medicatio ns (including supplements, vitamins, herbs, or OTC drugs) [place] [address] 04/29/2024 Free from Intimate p artner violence [place] [address] 04/29/2024 Use of Portal [place] [address] 04/29/2024 Food Safety/Specific dietary adjustments [facility] 04/29/2024 Genetic Screening Declined after discussi on. [facility] Second Trimester Discussed Date Discussion Item Discussion Note Discuss ed By Third Trimester Discussed Date Discussion Item Discussion Note Discuss ed By Delivery Information Delivery Date Delivery Type Labor Anesthesia Weeks Gestation Incision Type Labor Labor Length Hrs Delivered By Post Complications Tubal Sterilization Discharge Date Comments Discharge Information Feeding Method Contraceptive Method Maternal HG B and HCT Levels
--- OUTSIDE RECORDS SUMMARY | 2024-07-08 11:01 | XMS_ITS | Data Portability ---
Author Organization [place] - [facility], [facility] -Facility Address [address] [place] [address] [place] [address] Assessment Encounter Date Assessment Date Assessment LastModified [...] Address Organization Details Recorded Time Pregnanc y [id number] Completed 07/07/2024 Luma Sotomayor APRN, AHMET, WHNP [address] [place] [address], [phone] , [facility] 4 23:04:49 Pregnanc y [id number] Completed Luma Sotomayor APRN, AHMET, JENNP [address] [place] [address], [phone] , [facility] 4 20:26:58 RhD negative [id number] Active 2023 Will decline RhoGam at 28 weeks, had RhoGam PP Luma Sotomayor APRN, AHMET, NP [address] [place] [address], [phone] , [facility] 4 10:45:45 RhD negative [id number] Completed 2023 Will decline RhoGam at 28 weeks, had RhoGam PP Luma Sotomayor APRN, AHMET, [facility] [address] [place] [address], [phone] , [facility] 4 10:45:45 Problem Notes None recorded. Procedures Surgical History Date Name Laterality Status Provider Name and Address Organization Details Recorded Time 12/29/2022 Date of Last Pap Smear completed Luma Sotomayor APRN, AHMET, KALEN [address] [place] [address], [phone], [facility] 04/29/2024 10:40:38 Imaging Results None recorded. Procedure Notes None recorded. Medical Equipment None Reported. Allergies No known drug allergies Vitals Date Recorded Body weight Body mass index (BMI) Body height Heart rate Systolic blood pressure Diastolic blood pressure Provider Name and Address Organization Details Last Updated DateTime 4 91917.3 0128 g 24 kg/m2 165.1 cm 60 /min 110 mm[Hg] 68 mm[Hg] Adan glover RN [address] [place] [address], [phone] [place] [address] & [facility] 4 10:17:29 Social History Question Answer Notes LastModified by Organizat ion Details LastModified Time Tobacco Smoking Status Never Smoker Fabiana RN [address] [place] [address], [phone], [facility] 04/29/2024 10:20:53 Do You Have [...] Or The Highest Degree You Have Received? [id number] Information not available 04/29/2024 What Is Your [...] Anxious, Or Unable To Sleep At Night)? [id number] Information not available 04/29/2024 Do You Use [...] Functional Status Question Answer Note LastModified by Kik ion Details LastModified Time Do you have [...] Response Allergies (Food, seasonal, environmental ) N Blood Transfusion N Lung Disease N Dermatologic Disorders N Breast Problem N Gestational Diabetes N Hematologic disorders N Anesthesia Complications N History of STI N Polycystic ovary syndrome N Anxiety Disorder N Autoimmune disease N Arthritis N Infertility N Acid Reflux (GERD) N Cancer N Endometriosis N High Cholesterol N Headaches N Fibromyalgia N Heart Problems N Kidney or Bladder Problems N Thyroid Problems N GI Problems N Acne N Eating Disorder N Anemia N Psychiatric Illness N Diabetes N Eczema N Abuse/Domestic Violence N Asthma N Trauma/Violence N Depression/ depression N Heart Disease N Pre-Eclampsia N Hypertension N Osteoporosis N [...] [id number] Luma Sotomayor, MICAH, AHMET, ROBERT [facility] Main [facility] [address] [place] [phone] 04/29/2024 10:06:07 04/29/2024 11:58:19 Routine care [id number] Z34.81 Z3A.10 Health Concerns Section Related Observation LastModified by Organization Detai ls LastModified Time None Recorded Concern Status LastModified by Organization Details LastModified Time None Recorded Advance Directives Directive N: Payers Encounter Date Sequence Insurance Name Policy Number Policy Pulido Covered Member ID Pulido Member ID Guarantor Name 04/29/2024 1 [place] [id number] Valentina Landa [id number] Valentina Landa Notes Date Note Type Note [...] NOB labs and physical exam done at [facility] last week prior to 1st trimester U/S. Reviewed Rh negative status, will decline RhoGam in but will accept PP, reviewed risks associated with this, will gain a declination form in 3rd trimester. Pap not indicated until 2025. Last baby was breech when DALILA with attempted homebirth. Once patient got to the hospital, baby had flipped. Discussed what [facility] would do if this occurs in that we would SG to a hospital and not willingly/routinel y deliver breech babies. BC orientation, tour and educational folder reviewed. Meets BC criteria. Prior care during this ? Yes, [facility]. Dating ultrasound completed or ordered? Yes, per [facility] visit. Client's thoughts on this : happy. Health Histories in chart updated/reviewed with client. Discussed nutrition, hydration, exercise, supplements (PNV, Vit D, Napanoch 3s) and promotion of . Advised regarding weight gain, food cautions, sibling prep, parenting, self care and mental wellness. Genetic screening informed consent provided. Informed regarding options and timeline- Patient declines genetic screening. Recommended CBE and speeder worker care, resources provided in folder. Relevant OB history reviewed, concerns/questions addressed: Rh negative, past experience. [facility] orientation provided with tour. Instructions on reaching abalone processor neurological surgery teacher by phone (preferred) and reviewed appropriate use of patient portal. Risk assessment completed for care per [facility], Policy and Procedure Manual reviewed with client, who meets criteria for CENTER at this time. Appropriate for care at this time. Mental health status assessed by EPDS= 0 today Education checklist reviewed. Time utilized for assessment of patient and/or reviewing chart, test results, setting follow up plan, coordinating care= 75 minutes. RTC 6 weeks Luma Sotomayor APRN, DHRUVM, WHNP [address] [place] [address], [phone], [facility] - [facility] 04/29/2024 11:58:08 OBGyn Episode Ob Episode Information Episode Created Date Number of Fetuses Patient Bloodtype Patient rh Status Prepregnancy Weight lbs Domestic Partner Domestic Partner Phone Father Name Pump Attendant Status 04/29/20 24 1 CLOSED Fetus Data First Name Last Name Admitted to NICU Weight (g) Sex Living Outcome Pediatric Complications Fetus ID Race Codes Race Delivery Type 3005.04 7 F Full Term [address] Jimmy Calculation Initial Jimmy Date Initial Exam Date Initial Exam Provider Initial Ultrasound Date Last Menstrual Period Date Ultra Sound Weeks Gestation 0 Eighteen To Twenty Week Jimmy Update Ultra Sound Date Fundal Height At Umbil Quickening Date Ultra Sound Latest Weeks Gestation Final Jimmy Confirmed By Final Jimmy Confirmed Date Final Jimmy Date Ultra Sound Latest Days Gestation 0 0 Menstrual History Last Menstrual Date Menses Monthly On Bcp Conception Prior Menses Frequency Hcg Plus Date Menarche Onset Age Delivery Information Delivery Date Delivery Type Labor Anesthesia Weeks Gestation Incision Type Labor Labor Length Hrs Delivered By Post Complications Tubal Sterilization Discharge Date Comments 3 None 37.2 18 Faribaul t . Attempted homebirth , baby was breech. Was able to flip upon arrival to hospital and had an Discharge Information Feeding Method Contraceptive Method Maternal HG B and HCT Levels Ob Episode Information Episode Created Date Number of Fetuses Patient Bloodtype Patient rh Status Prepregnancy Weight lbs Domestic Partner Domestic Partner Phone Father Name Pump Attendant Status 04/28/20 24 1 O Negative 142 Gerardo CLOSED Fetus Data First Name Last Name Admitted to NICU Weight (g) Sex Living Outcome Pediatric Complications Fetus ID Race Codes Race Delivery Type 762 Problems Problem Notes Labs completed on 04/22/2024 at [facility]:Ccvprbfhx-inaojyjoHbuxdsrxg-laf reactiveRubella-negative <0.2 RCH-efutzqrdSVT-rqpeowhoQpn C-sixyueoxIuy-91.8 g/dLAntibody-negativeType and Screen B-Xrcbnelto-awojwoidhfsxibgtz-negativeUrine midstream-all negative and small leuk esterase-Culture normal floraUltrasound done at 9 wks 2/7days-JIMMY per U/S 11/23/2024 Problem Name Start Date End Date Resolution Snomed Code Not e [id number] RhD negative 04/29/2024 [id number] Will d ecline RhoGam at 28 weeks, [...] NOB labs and physical exam done at [facility] last week prior to 1st trimester U/S. Reviewed Rh negative status, will decline RhoGam in but will accept PP, reviewed risks associated with this, will gain a declination form in 3rd trimester. Pap not indicated until 2025. Last baby was breech when DALILA with attempted homebirth. Once patient got to the hospital, baby had flipped. Discussed what [facility] would do if this occurs in that we would SG to a hospital and not willingly/routinely deliver breech babies. orientation, tour and educational folder reviewed. Meets criteria. Menstrual History Last Menstrual Date Menses Monthly On Bcp Conception Prior Menses Frequency Hcg Plus Date Menarche Onset Age 0602/02/2024 Genetic Screening And Infection History Question Response Note Patient's Age Will Be 35 Yea rs Or Older At Estimated Date of Delivery false Thalassemia (Vincentian, Italian, Mediterranean, Or Background): MCV < 80 false Neural Tube Defect (Meningom yelocele, Spina Bifida, Or Anencephaly) false Congenital Heart Defect false Down Syndrome false Enrrique-Sachs (eg, Adventism, Cajun , Taiwanese-[place]) false Tuyet Disease false Sickle Cell Disease [...] 04/29/2024 Risk factors identif ied by history [place] [id number] 04/29/2024 Anticipated course o f care [place] [address] 04/29/2024 Safety (medications, supplements, seat belts, teratogens, etc) [place] [address] 04/29/2024 Labs required for [facility] labor/ Offered/Reviewed [place] [address] 04/29/2024 Take Vitamin D 2,000 -5,000IU daily [place] [address] 04/29/2024 Activity-work,fitnes s,sex,post ure [place] [address] 04/29/2024 Meets BC Criteria [place] [address] 04/29/2024 Free from Intimate p artner violence [place] [address] 04/29/2024 [place] [address] 04/29/2024 Use of any medicatio ns (including supplements, vitamins, herbs, or OTC drugs) [place] [address] 04/29/2024 Genetic Screening Declined after discussi on. [place] [address] 04/29/2024 Food Safety/Specific dietary adjustments addressed [place] [address] 04/29/2024 Weight gain counseling [facility] 04/29/2024 Use of Portal [place] [address] Second Trimester Discussed Date Discussion Item Discussion [...]
--- NOTE | 2024-07-08 11:15 | CRLHL7_ITS ---
For Patients: As a result of the Century Cures Act, medical imaging exams and procedure reports are released immediately into your electronic medical record. You may view this report before your referring provider. If you have questions, please contact your health care provider. INDICATION: Evaluate anatomy. COMPARISON: 04/22/2024 TECHNIQUE: Real time olvera scale imaging of the fetus was performed as well as color Doppler analysis of the umbilical vessels. FINDINGS: Sonographic imaging demonstrates a single living intrauterine gestation. Fetus demonstrates a regular cardiac rate of 154 beats per minute. Fetus has a vertex position. The placenta lies posteriorly without evidence of placenta previa. Placental edge is 3.3 cm from the internal cervical os. Amniotic fluid volume appears normal. Single deepest vertical pocket: 3.7 cm. The cervix is closed and measures 4.5 cm in length. The composite ultrasound gestational age is calculated at 20 weeks 1 day with an estimated sonographic due date of 11/24/2024. The estimated weight is 357 grams which lies at the 57th %. The following biometric measurements were obtained: Biparietal diameter: 4.5 cm/19 weeks 5 days 26th% Head circumference: 17.7 cm/20 weeks 1 day 37th% Abdominal circumference: 15.3 cm/20 weeks 4 days 52nd% Femur length: 3.4 cm/20 weeks 4 days 52nd% The HC/AC ratio measures: 1.16 range (1.07-1.25) On anatomic survey, there is a normal appearance of the cerebral ventricles, cavum septi pellucidi, cisterna magna and cerebellum. The nose, lips, and facial profile appear normal. The cervical, thoracic and lumbar spine are well visualized and appear normal. There is a normal four-chamber heart view and the left and right ventricular outflow tracts appear normal. The diaphragm and stomach appear normal. The kidneys and bladder also appear normal. There is a normal three-vessel cord and cord insertion site. The four extremities appear normal. IMPRESSION: Normal OB ultrasound exam with concordance of clinical and sonographic dating. No intrinsic abnormalities noted on anatomic survey. Dictated by Jacob Hinkle MD @ 07/10/2024 8:06:32 AM (Electronically Signed)
== END 2024-07-08 10:58 | disposition home or self-care (01) ==
LOC: US 10:57
PROVIDERS: Visit Provider Midwife
DX: Z34.92 Encounter for supervision of normal pregnancy, unspecified, second trimester (principal); Z3A.20 20 weeks gestation of pregnancy
CPT/HCPCS: 76805

== ENCOUNTER 2024-09-02 12:30 | Outpatient (CLI) | payer OTHER, SELFPAY | END 2024-09-02 12:31 | disposition home or self-care (01) | LOC: NFLDREF 09-04 04:16 | PROVIDERS: Visit Provider Advanced Practice Midwife | DX: Z34.93 Encounter for supervision of normal pregnancy, unspecified, third trimester (principal); Z3A.28 28 weeks gestation of pregnancy | CPT/HCPCS: 86592; 86850 ==

== ENCOUNTER 2024-10-21 13:55 | Outpatient (CLI) | payer OTHER, SELFPAY ==
[2024-10-21 22:57] LABS: Strep B DNA Probe Negative (Negative)
[2024-10-22 18:22] LABS: Strep B Susceptibility Needed? No
== END 2024-10-21 13:56 | disposition home or self-care (01) ==
PROVIDERS: Visit Provider Advanced Practice Midwife
DX: Z34.93 Encounter for supervision of normal pregnancy, unspecified, third trimester (principal); Z3A.35 35 weeks gestation of pregnancy
CPT/HCPCS: 80053; 82306; 82728; 87081; 87653

== ENCOUNTER 2024-11-12 04:31 | Inpatient (IN) | payer OTHER, SELFPAY ==
[2024-11-12] VITALS (15 sets, daily range): BP systolic 109–143; BP diastolic 58–77; PULSE 68–110; RESP 16–20; TEMP 36.5–36.9; O2SAT 96–98; BMI 32.5
--- NOTE | 2024-11-12 05:17 | PM.OBHPLI ---
Documented by User: Charmaine Alanis 11/12/24 05:17 OB - H&P: HPI Labor/Induction History of Present Illness Chief Complaint: The patient is a [] year old [] para [] at [] weeks gestation by [], who presents with []. [] Chief complaint: Maternity Narrative: Valentina Landa is a 28 year old female Specific Issues/Plans G 2 P 1001 :??Gerardo Transferred on 06/17/2024 from [facility] at 17.2 weeks ? # Hx unstable lie in labor with first baby, poor documenation of this. #O neg Recommend Rhogam at 28 weeks: declines Recommend [place] screen: Baby + blood type OB Labs 04/22/2024:??? Blood type: O neg, antibody screen negative.??? Hgb: 12.8??? Platelets: 254??? Rubella: Not Immune??? Varicella: Immune? Syphilis: non-reactive??? HBsAg: non-reactive??? Hep C: negative? HIV: negative??? UC: negative? GC/Chlamydia: 04/07/2024 neg??? Pap (01/20/2023): NILM??? Genetic screening: declined at previous practice, but Valentina states she would like it done here with carrier screen, gender reveal and baby blood type. ? IMAGING:??? 1st trimester:04/07/2024 SLIUP consistent with dating 9w2d JIMMY 11/24/2024??? Anatomy US: [] Other: [] COVID:not vaccinated, declined Flu: declined TDAP: declined RSV: declined 32wk Mental Health:?PHQ-9=0, KAREN-7=2 34wk hgb:??10/21/2024 Pap: (Only high-risk abnormal pap in problem list)? Meds Home Medications and Allergies Home Medications ?Medication ?Instructions ?Recorded ?Confirmed ?Type multivitamin 1 tab PO QAM 06/17/24 10/21/24 History Allergies Allergy/AdvReac Type Severity Reaction Status Date / Time No Known Drug Allergies Allergy Verified 10/21/24 13:43 OB - H&P: Exam Physical Exam: Vital signs: Pulse BP Pulse Ox 68 134/75 98 11/12/24 05:03 11/12/24 05:03 11/12/24 04:29 OB - Problem Based A/P Additional Plan (1) Pain during labor: Status: Acute (2) 38 weeks gestation of : Status: Acute (3) Limited care, antepartum: Status: Acute (4) Rh negative status during : Status: Acute Documented by User: Bethany Pathak CNM 11/12/24 05:52 OB - H&P: HPI Labor/Induction History of Present Illness Date Seen: 11/12/24 Chief Complaint: Labor Chief complaint: Maternity : 2 Para: 1 Narrative: Valentina Landa is a 28 year old at 38.3 weeks gestation that presented in spontaneous labor. She reports she had irregular contractions around midnight but was able to sleep. She was awoken by contractions at 0200 am where they progressively got more regular and painful. She presented to triage around 358 and requested to use the restroom. She had SROM of clear fluid while on the toilet. She then was assisted to the bed and was moved to a labor room. She began involuntarily pushing on arrival to the labor room. She was then assisted to the labor bed and delivered shortly after. See delivery note for further details. Valentina has has limited care this . She transferred from [facility] at 17.2 weeks, having only a NOB appointment there. She was then seen at 20 weeks for her anatomy US, 28 weeks for glucose testing, and 35 weeks for GBS testing. She reports her is uncomplicated and that she didn't need care. Her is otherwise complicated by O negative blood type. She declined RhoGAM in , declination form is signed and in chart. Her history is further complicated by possible unstable lie in previous . There have been no concerns this however she has not been seen in clinic since 10/25/2024. She is supported in labor today by her Mother, Shruthi, and her , Gerardo. Specific Issues/Plans G 2 P 1001 :??Gerardo Transferred on 06/17/2024 from [facility] at 17.2 weeks ? # Hx unstable lie in labor with first baby, poor documenation of this. #O neg Recommend Rhogam at 28 weeks: declines Recommend [place] screen: Baby + blood type OB Labs 04/22/2024:??? Blood type: O neg, antibody screen negative.??? Hgb: 12.8??? Platelets: 254??? Rubella: Not Immune??? Varicella: Immune? Syphilis: non-reactive??? HBsAg: non-reactive??? Hep C: negative? HIV: negative??? UC: negative? GC/Chlamydia: 04/07/2024 neg??? Pap (01/20/2023): NILM??? Genetic screening: declined at previous practice, but Valentina states she would like it done here with carrier screen, gender reveal and baby blood type. ? IMAGING:??? 1st trimester:04/07/2024 SLIUP consistent with dating 9w2d JIMMY 11/24/2024??? Anatomy US: [] Other: [] COVID:not vaccinated, declined Flu: declined TDAP: declined RSV: declined 32wk Mental Health:?PHQ-9=0, KAREN-7=2 34wk hgb:??10/21/2024 Pap: (Only high-risk abnormal pap in problem list)? History of Present Dating criteria: based on 1st trimester US only care: limited care Ultrasounds: normal 1st trimester US and normal mid trimester US Labs Blood type: 0 (-) negative Rubella: nonimmune (Declines vaccine ) RPR/VDLR: nonreactive GBS status: negative HBsAG: negative Review of Systems Status of ROS: Reports: 10 or more systems reviewed and unremarkable except as noted in History and below Meds Home Medications and Allergies Home Medications ?Medication ?Instructions ?Recorded ?Confirmed ?Type multivitamin 1 tab PO QAM 06/17/24 10/21/24 History Allergies Allergy/AdvReac Type Severity Reaction Status Date / Time No Known Drug Allergies Allergy Verified 10/21/24 13:43 OB - H&P: Exam Physical Exam: Narrative: Vitals Reviewed Constitutional:? Alert and oriented x3 HEENT:? Normocephalic, atraumatic Neck:? Supple Lungs:? Clear to auscultation bilaterally Heart:? Regular rate and rhythm, no murmur, rub or gallop Abdomen:? Soft, nontender, and gravid. Extremities:? No edema or erythema Cervix: Deferred due to patients status NST: not obtained, intermittent FHR tracing obtained with bedside ultrasound/toco due to patient position and precipitious labor OB - Problem Based A/P Additional Plan (1) Pain during labor: Status: Acute (2) 38 weeks gestation of : Status: Acute (3) Limited care, antepartum: Status: Acute (4) Rh negative status during : Status: Acute Plan ASSESSMENT:? 28 yo at 38.3 weeks gestation? complicated by:?limited care, rh negative and declined RhoGAM in Labor type: Spontaneous, Active labor? Reassuring but difficult to obtain continuous monitoring due to precipitous delivery and patient position Labor complicated by: Precip? GBS negative? ? PLAN:? 1. Routine intrapartum cares as ordered. Continue with expectant management? 2. Monitoring per policy. Attempted to obtain NST baseline.? 3. Unmedicated delivery. 4. Precipitous ? Delivery/Labor/Induction Plan Plan: expectant management
--- NOTE | 2024-11-12 05:17 | W.PM.OBVAGDE ---
Documented by User: Bethany Pathak CNM 11/12/24 05:52 OB Procedure Vag Delivery Mother Details Mother Details: The patient is a 28 year-old, 2, Para 1, admitted on 11/12/24 at 38 3/7 weeks gestation. Additional Details Pitcoin: No (Declined AMTSL) Intrapartal Events: Precipitous Labor <3 Hrs Heart: heart tones during second stage were category II and difficult to monitor due to precipitous delivery and maternal position. Delivery Details Delivery Details: Patient was admitted for spontaneous labor and progressed normally. SROM noted at 0400 with clear fluid. Patient was assumed complete at 0423 with pushing at 0423. Precipitous of a viable female at 0439 in hands and knees position on the bed. Vertex delivered OA. No nuchal cord or shoulder dystocia. Body delivered easily and without incident. Infant was passed through maternal legs to mother's hands, assisted turning to her back where was placed onto maternal abdomen with a vigorous cry. Placenta was delivered spontaneously in tact with a 3 vessel cord at 0447 prior to cord clamping, as per maternal plan. Cord was clamped a few minutes after delivery of placenta. APGARS were 7 at one minute and 9 at five minutes respectively. Fundus firm. Small bilateral periurethral abrasion identified, hemostatic with no indication for repair. QBL 400 cc. Mother and baby stable; mother plans to breastfeed. Infant weight pending. 1 Minute Interval Total Score: 7 5 Minute Interval Total Score: 9 Additional Details Shoulder Dystocia: No Placenta Delivery Time: 04:47 Placental Delivery Description: Spontaneous Procedure Done: Global Blood Loss: 400 (EBL + QBL) Laceration: Periurethral - 1st Degree (Small and approximated, no repair needed) Blood Loss Measurement Type: QBL (+EBL) Bakri Used: No Sponge/Need Count Correct: Yes Cord Vessel Description: 3 Vessels Event Summary Status: Mother and were stable after delivery. I,?Bethany Pathak APRN, CNM, was present for visit and have reviewed and agree with documentation by the Certified Nurse Midwifery Student. Documented by User: Charmaine Alanis 11/12/24 05:39 OB Procedure Vag Delivery Mother Details Mother Details: The patient is a 28 year-old, 2, Para 1, admitted on 11/12/24 at 38 3/7 weeks gestation. Presented to floor in active labor, SROM in triage room on toilet, moved to birthing room where she precipitously delivered. : 2 Para: 2 Weeks Gestation: 38.3 Admission Date: 11/12/24 Additional Details Amniotic Membrane Status: SROM Amniotic Membrane Rupture Date: 11/12/24 Amniotic Membrane Rupture Time: 04:00 Amniotic Membrane Fluid Description: Clear Analgesia/Anesthesia Type: None Waterbirth: No Pitcoin: No Intrapartal Events: None Labor Onset: 02:00 Complete: 04:23 Pushin:23 Heart: heart tones during second stage were category II Delivery Details Delivery Date: 11/12/24 Delivery Time: 04:39 Route of delivery: Gender: Female Viability: Alive; Heart Rate Present Position at Delivery: OA Delivery Details: Patient was admitted for spontaneous labor and progressed normally. SROM noted at 0400 with clear fluid. Patient was assumed complete at 0423 with pushing at 0423. Precipitous of a viable female at 0439 in hands and knees position on the bed. Vertex delivered OA. No nuchal cord or shoulder dystocia. Body delivered easily and without incident. Infant was passed through maternal legs to mother's hands, assisted turning to her back where infant was placed onto maternal abdomen with a vigorous cry. Placenta was delivered spontaneously in tact with a 3 vessel cord at 0447 prior to cord clamping, as per maternal plan. Cord was clamped a few minutes after delivery of placneta. APGARS were 7 at one minute and 9 at five minutes respectively. Fundus firm. Bilateral periurethral abrasion identified, hemostatic with no indication for repair. QBL 400 cc. Mother and baby stable; mother plans to breastfeed. Infant weight pending. Event Summary Status: Mother and were stable after delivery. Disposition: floor
[2024-11-12] MEDS: DOCUSATE SODIUM 100 MG CAPSULE PO (07:52)
[2024-11-13 05:34] VITALS: BP 109/77; PULSE 100; RESP 20; O2SAT 97
[2024-11-13 07:07] LABS: Hemoglobin* 12.8 gm/dL (12.0-16.0)
--- NOTE | 2024-11-13 09:42 | PM.OBDSVD1 ---
DS: Providers Provider Date Seen: 11/13/24 Date of admission: 11/12/24 04:31 Primary care physician: Not a Local Provider Admitting Clinician: Bethany Pathak CNM Attending Physician on discharge: Ivett Bell CNM Date of Discharge: 11/13/24 DS: Diagnosis Discharge Diagnosis (1) care and examination of lactating mother: Status: Acute Exam Narrative: Exam Narrative: VSS, afebrile GENERAL APPEARANCE: ?normal affect, alert, no distress MOOD: ?appropriate HEENT: normocephalic, neck supple, full ROM CHEST: ?Symmetrical chest wall movement. ?Normal respiratory effort. ?Clear to auscultation HEART: ?regular rate and rhythm ABDOMEN: ?soft, non-tender. Uterine fundus is firm, 1 below Umbilicus, Midline and is appropriate for the stage of recovery. ?Bowel sounds present. PERINEUM: ?mild edema of the perineum, there is a periurethral laceration that is healing well. EXTREMITIES: ?normal and trace edema Const: Vital Signs, click to edit/add: Vital Signs - 24 hr 11/12/24 12:13 11/12/24 16:41 11/12/24 20:23 Temperature 98.2 F 98.3 F 98.4 F Pulse Rate [Pulse Oximeter] 110 H 93 95 Respiratory Rate 16 16 20 Blood Pressure [Ri ght Arm] 115/75 116/77 115/71 Pulse Oximetry 96 97 97 Oxygen Delivery Me thod Room Air Room Air Room Air 11/12/24 23:13 11/13/24 05:34 Temperature 97.7 F Pulse Rate [Pulse Oximeter] 90 100 Respiratory Rate 16 20 Blood Pressure [Ri ght Arm] 111/73 109/77 Pulse Oximetry 97 97 Oxygen Delivery Me thod Room Air Room Air Documenting provider has reviewed patient's vital signs: yes OB - DS: Summary Hospital Course Hospital Course: Valentina is a 28 y.o. who was admitted to [facility] for labor. ?She had an uncomplicated NVD.?The patient feels well. ?The pain is well controlled with current medications. ?She has no new complaints. ?She is breast feeding and reports things are going well.? the patient has done well.? Vitals have been stable.? She has remained afebrile.? Has a good appetite, is tolerating a general diet. ?She is voiding without difficulty.? She is passing gas and has had a bowel movement.? She is ambulating and denies any dizziness.? Has Small amount of rubra lochia. ?She is planning tubal ligation for prevention. Peripartum Data Infant delivery method: Vaginal Laceration description: Periurethral - 1st Degree complications: none [place] Infant Gender: Female Infant Discharge Plan: Home Status at Discharge Functional status at discharge: independent ambulation Overall status at discharge: patient is progressing back to baseline Time Spent with Patient Time attestation: Total time spent providing and/or coordinating discharge services: Time spent: Less than 30 minutes Discharge Plan Discharge Disposition: Home, Self-Care Date of Admission: 11/12/24 04:31 Attending Provider on Discharge: Ivett Bell Primary Care Provider: Provider,Not a Local Condition: Stable Anticipated Discharge Date/Time: 11/13/24 12:00 Discharge Medications: New acetaminophen 500 mg Tablet 1,000 mg PO Q6H PRN (Reason: pain/fever) Qty: 0 0RF docusate sodium 100 mg Capsule 100 mg PO DAILY Qty: 0 0RF ibuprofen 600 mg Tablet 600 mg PO Q6H PRNQty: 0 0RF Continued multivitamin Tablet 1 tab PO QAM Discharge Orders: Discharge Order (Routine); Ordered 11/13/24 Ordered By: Ivett Bell Patient Education: OB Over the Counter Medication Information, OB Vaginal/Breast Feeding Additional Instructions: Discharge instructions were reviewed with the patient including signs and symptoms of infection and home going medications Nothing vaginally for 6 weeks: no tampons or intercourse Off Work or School for 6 weeks 2-week visit: discuss feeding concerns, review control options and screen for anxiety/depression. 6-week visit for an annual exam. consultation services are available to all mothers and babies for the first year after delivery.? To make an appointment, please call [phone]. Activity Level: Activity as Tolerated Discharge Diet: Regular Follow Up Appointments: Provider,Not a Local [Primary Care Provider] - [facility] [Provider Group] Forms: iSSimple Info Instructions
[2024-11-13 10:15] VITALS: BP 115/81; PULSE 104; RESP 18; TEMP 36.8; O2SAT 96
[2024-11-13] MEDS: DOCUSATE SODIUM 100 MG CAPSULE PO (11:41)
== END 2024-11-13 12:14 | disposition home or self-care (01) | DRG 807 ==
LOC: OB OUT 04:32 → OB 11-13 09:45
PROVIDERS: Admitting Provider Advanced Practice Midwife; Visit Provider Advanced Practice Midwife
DX: O62.3 Precipitate labor (principal); Z37.0 Single live birth; O70.0 First degree perineal laceration during delivery; O26.893 Other specified pregnancy related conditions, third trimester; Z67.41 Type O blood, Rh negative; Z3A.38 38 weeks gestation of pregnancy
CPT/HCPCS: 36415; 85018; 85461; 86592; G0463; A9270; J2791

== ENCOUNTER 2025-03-24 09:18 | Day surgery (SDC) | payer OTHER, SELFPAY ==
[2025-03-24] VITALS (11 sets, daily range): BP systolic 98–121; BP diastolic 55–76; PULSE 50–81; RESP 12–16; TEMP 36.2–36.8; O2SAT 97–100; BMI 31.6
--- NOTE | 2025-03-24 08:49 | P.ANES_ITS ---
Anesthesia Charges Start Date/Time Anesthesia Start Date: 03/24/25 Anesthesia Start Time: 10:26 Stop Date/Time Anesthesia Stop Date: 03/24/25 Anesthesia Stop Time: 11:42 Coding CPT Codes CPT Codes: ANESTH SURG LOWER ABDOMEN - 62798 ([id number]) P1 - NORMAL HEALTHY PATIENT, QK - HEARING AIDE TECHNICIAN 2-4 CNCRNT ANES PROC, QX - SUPERVISOR MONEY ROOM SVAubrey W/ MED DIRECTION
--- NOTE | 2025-03-24 08:49 | P.NB_ITS ---
Nerve Block Nerve Block Time Seen by Provider: 08:45 Date Seen: 03/24/25 Type of block requested by surgeon for post-operative analgesia: TAP Side: bilateral Time out performed: Yes Verification of patient name: Yes Verification of date of : Yes Site marking: site marked Name of person performing procedure: Paul Continuous monitoring Was continuous monitoring of O2 sat, B/P, cardiac rehabilitation specialist, recorded every 15 minutes?: Yes Procedure Checklist: sterile prep, needles and gloves Ultrasound guided. Images saved: Yes Medications given in 5ml increments after negative aspiration: Marcaine %: 0.25 mL: 30 Needle gauge: 20 and Exparel mL: 10 Patient tolerated procedure well: Yes Additional comments: Needle noted between internal oblique and transversus abdominus. Local spread visualized Block Charges Block Charge (with Pro Fee): TAP Bilateral Use of Ultrasound Machine for Block: Yes- US Guidance/pain block
--- NOTE | 2025-03-24 08:49 | W.ANESCHARGE ---
Anesthesia Charges Start Date/Time Anesthesia Start Date: 03/24/25 Anesthesia Start Time: 10:26 Stop Date/Time Anesthesia Stop Date: 03/24/25 Anesthesia Stop Time: 11:42 Coding CPT Codes CPT Codes: ANESTH SURG LOWER ABDOMEN - 77357 ([id number]) P1 - NORMAL HEALTHY PATIENT, QK - GRAD INTERN 2-4 CNCRNT ANES PROC, QX - BABY REGISTRY SALES CONSULTANT SVAubrey W/ MED DIRECTION
[2025-03-24] MEDS: LACTATED RINGERS 1000 ML 1,000 ML 100 ML IV (09:25)
[2025-03-24 09:52] LABS: Ur HCG Qualitative* Negative (Negative)
[2025-03-24] MEDS: SODIUM CHLORIDE 0.9 % (FLUSH) 10 ML SYRINGE IVF (09:57)
--- NOTE | 2025-03-24 10:28 | P.GYNPRC_ITS ---
Procedure Note Date of procedure: 03/24/25 Will [facility] bill your pro fee for this procedure?: Yes Pre-op diagnosis: 1. Undesired fertility. 2. Four months . Post-op diagnosis: Same. Procedure: Laparoscopic bilateral salpingectomies. Anesthesia: GETA Complications: None. Surgeon: Fabiola Strange MD Estimated blood loss (mL): 5 Pathology: specimen obtained, sent to pathology (Left fallopian tube with detached paratubal cyst, Right fallopian tube.) Condition: stable Disposition: same day Findings: Normal-appearing uterus. Normal-appearing left fallopian tube with small paratubal cyst. Normal-appearing right fallopian tube. Normal-appearing ovaries bilaterally. Normal-appearing appendix. Procedure Description: After obtaining informed consent, the patient was taken to the operating room where general anesthesia was obtained without difficulty. She was prepared and draped in the normal sterile fashion in the low dorsal lithotomy position. A Quesada catheter was inserted into the bladder and left to gravity drainage. A medium Graves open-sided speculum was introduced into the vagina. The cervix was visualized and grasped along its anterior lip with a single-toothed tenaculum. A [employer] uterine manipulator was placed without difficulty. The tenaculum and speculum were removed. I then changed gloves and my attention was turned to the abdomen. The inferior aspect of the umbilical fold was injected with 0.25% Marcaine plain. A 12 mm transverse incision was then made along the inferior aspect of the umbilical fold using a scalpel. The subcutaneous tissues were bluntly dissected with a Yanira clamp to the fascia. A direct entry technique was used to place a 5 mm laparoscopic port with CO2 gas set to a 5 mmHg. The trocar was removed leaving the sleeve in place. The port was just lateral into the left of the urachus, and it was evident that there was some gas within the preperitoneal space in the midline. The CO2 gas flow was turned to high flow to achieve pneumoperitoneum. The 5 mm laparoscope was used then to carefully inspect the abdomen and pelvis with findings noted above. Pictures were taken for documentation purposes. The patient was placed in Trendelenburg positioning. Two additional 5 mm ports were placed in the right and left lower quadrants under direct visualization after first anesthetizing the skin and fascia with 0.25% Marcaine plain. The uterus was elevated using the uterine manipulator. The patient was placed in mild Trendelenburg positioning and the bowels spontaneously fell from the pelvis cephalad. The fallopian tubes were then each identified to the fimbrial ends. The left fallopian tube was elevated with a graspers. The LigaSure bipolar electrocautery cutting device was used to dissect the left fallopian tube from the left ovary, the mesosalpinx, and the left uterine cornua. Excelle nt hemostasis was visualized. The tube was removed through the left lower quadrant port site. With the removal, a small paratubal cyst that had been excised with the left tube fell back into the abdomen. It was grasped, pierced with a needle to drain the clear fluid from within it, and then it was removed through the left lower quadrant port and included with the left fallopian tube specimen. The right fallopian tube was elevated, excised with the LigaSure, and removed from the abdomen in a similar fashion. Excellent hemostasis was visualized. All instruments were then removed under direct visualization. Pneumoperitoneum was allowed to escape. The skin at all 3 port sites was closed in a subcuticular fashion with 4-0 Vicryl. LiquiBand was then placed over the incisions. The uterine manipulator and Quesada catheter were removed. The patient tolerated the procedure well. Sponge, lap, and needle counts were correct x2. The patient was taken to the recovery room awake and in stable condition.
[2025-03-24] MEDS: BUPIVACAINE 0.25% 30 ML 20 ML INJECTION (10:52)
--- NOTE | 2025-03-24 11:00 | SUR.OPER ---
PATIENT QUESTIONS ANSWERED SATISFACTORILY PREOPERATIVELY. PATIENT BROUGHT TO OR #3 PER CART. Patient positioned supine on OR #3 bed for the intubation. Pt. then moved into the lithotomy position for the procedure. Perioperative team padded and tucked the arms at pt. sides in a neutral position. ? Final approval of positioning by surgeon.
--- NOTE | 2025-03-24 12:01 | P.ANES_ITS ---
Anesthesia Charges Start Date/Time Anesthesia Start Date: 03/24/25 Anesthesia Start Time: 10:26 Stop Date/Time Anesthesia Stop Date: 03/24/25 Anesthesia Stop Time: 11:42 Coding CPT Codes CPT Codes: ANESTH SURG LOWER ABDOMEN - 06322 ([id number]) P1 - NORMAL HEALTHY PATIENT, QK - CLERK OF SUPERIOR COURT 2-4 CNCRNT ANES PROC, QX - DAIRY INSPECTOR SVAubrey W/ MED DIRECTION
--- NOTE | 2025-03-24 12:01 | W.ANESCHARGE ---
Anesthesia Charges Start Date/Time Anesthesia Start Date: 03/24/25 Anesthesia Start Time: 10:26 Stop Date/Time Anesthesia Stop Date: 03/24/25 Anesthesia Stop Time: 11:42 Coding CPT Codes CPT Codes: ANESTH SURG LOWER ABDOMEN - 09051 ([id number]) P1 - NORMAL HEALTHY PATIENT, QK - MASTER ELECTRICIAN 2-4 CNCRNT ANES PROC, QX - LEAN COACH SVAubrey W/ MED DIRECTION
== END 2025-03-24 13:11 | disposition home or self-care (01) ==
LOC: OR 09:20
PROVIDERS: Visit Provider Obstetrics & Gynecology
PROC: (CPT 58661; principal; 2025-03-24 10:15)
DX: Z30.2 Encounter for sterilization (principal)
CPT/HCPCS: 58661; 00840; 81025; J0665; J1100; J1885; J2250; J2405; J2704; J2710; J3010; J7120